=== PATIENT | female | born 1985 | race Caucasian/White ===

== ENCOUNTER 2020-12-15 10:24 | Emergency (ER) | payer OTHER, SELFPAY ==
[2020-12-15 10:56] VITALS: BP 119/72; PULSE 66; RESP 16; TEMP 36.8; O2SAT 99; BMI 36.5
--- NOTE | 2020-12-15 11:31 | ECG_ITS ---
Test Reason : ABDOMINAL PAIN Blood Pressure : / mmHG Vent. Rate : 061 BPM Atrial Rate : 061 BPM P-R Int : 204 ms QRS Dur : 090 ms QT Int : 408 ms P-R-T Axes : 045 036 006 degrees QTc Int : 410 ms Normal sinus rhythm Normal ECG When compared with ECG of 08-MAR-2012 22:17, Vent. rate has decreased BY 50 BPM Referred By: Emily Sadler Electronically Signed By:JOAQUIM FATIMA
--- NOTE | 2020-12-15 12:04 | ED.ABDPAIN ---
HPI - Abdominal Pain General Chief Complaint: Abdominal Pain Stated Complaint: epigastric pain Time Seen by Provider: 12/15/20 11:30 Source: patient Mode of arrival: ambulatory Limitations: no limitations History of Present Illness HPI narrative: Patient comes to the emergency room complaining of epigastric burning sensation. Patient states that she has had this issue in the past, patient states that she has not noticed any pattern, not sure if food makes it worse. Patient is being treated for gastritis with omeprazole. Yesterday she had 4 omeprazole without relief, states usually they do help. Patient denies right upper quadrant pain. No vomiting or diarrhea. No fever chills. Related Data Previous Rx's Medication Instructions Recorded sucralfate 1 gram tablet (Carafate) 1 g PO BID #14 tab 12/15/20 Allergies Allergy/AdvReac Type Severity Reaction Status Date / Time morphine [Morphine] Allergy Unknown RASH, Unverified 01/02/20 15:21 Chest pain,rash, itchy sumatriptan [Imitrex] Allergy Unknown Migraines Verified 03/29/17 00:00 get worse zolmitriptan [From ZOMIG] AdvReac Unknown HEADACHES Unverified 01/02/20 15:21 From Imitrex AdvReac Unknown DIZZINES Uncoded 01/02/20 15:21 Review of Systems Review of Systems Constitutional : No Weight loss, No Fever, No Chills, No Night Sweats, No Fatigue, No Malaise ENT/Mouth : No Hearing loss, No Ear Pain, No Nasal Congestion, No Sinus Pain, No Hoarseness, No sore throat, No Rhinorrhea, No Swallowing Difficulty Eyes: No Eye Pain, No Swelling, No Redness, No Foreign Body, No Discharge, No Vision Changes Cardiovascular : No Chest Pain, No SOB, No Dyspnea on Exertion, No Orthopnea, No Edema, No Palpitations Respiratory : No Cough, No Sputum, No Wheezing, No Smoke Exposure, No Dyspnea Gastrointestinal : No Nausea, No Vomiting, No Diarrhea, No Constipation, complaining of epigastric burning sensation Genitourinary : no irregular bleeding, No Dysuria, No Urinary Frequency, No Hematuria, No Urinary Incontinence, No Urgency, No Flank Pain, No Urinary Flow Changes, No Hesitancy Musculoskeletal : No joint pain, No Myalgias, No Joint Swelling Skin : No Skin Lesions, No rash Neuro : No Weakness, No Numbness, No Paresthesias, No Loss of Consciousness, No Dizziness, No Headache Psych : No Anxiety/Panic, No Depression, No SI/HI/AH/VH, No Social Issues, Heme/Lymph: No Bruising, No Bleeding,No Lymphadenopathy Endocrine : No Polyuria, No Polydipsia, No Temperature Intolerance Physical Exam Vital Signs: Vital Signs: Last Vital Signs Temp 98.2 F 12/15/20 10:56 Pulse 66 12/15/20 10:56 Resp 16 12/15/20 10:56 BP 119/72 12/15/20 10:56 Pulse Ox 99 12/15/20 10:56 Body Mass Index 36.5 Const: Other: Appearance: Alert. Oriented X3. No acute distress. Well-appearing Eyes: Pupils equal, round and reactive to light. ENT: Pharynx normal. Neck: Normal inspection. Neck supple. No lymph nodes noted. No crepitus CVS: Normal heart rate and rhythm. Pulses normal. Normal S1 and S2 Respiratory: No respiratory distress. Breath sounds normal. No Wheezing. No rales Abdomen: Soft and nontender. No rigidity. No distention. Skin: Skin warm and dry. Normal skin color. Normal skin turgor. Extremities: No lower extremity edema. No lower extremity edema. No Lacerations. No Rash Neuro: Oriented X 3. No motor deficit. No sensory deficit. Moving all extermities. No slurred speech. Course Course Course Narrative: Patient states that she feels much better now, patient received 1 dose of GI cocktail. I discussed with the patient that she likely has gastritis versus peptic ulcer disease MDM - Abdominal Pain Lab Data Result diagrams: 12/15/20 12:09 12/15/20 12:09 Labs: Lab Results 12/15/20 12/15/20 12/15/20 Range/Units 12:09 12:09 12:09 WBC 8.9 (4.8-10.8) X10*3/uL RBC 4.64 (4.20-5.50) X10*6/uL Hgb 12.7 (12.0-16.0) g/dl Hct 39.5 (37-47) % MCV 85.1 (80-98) fL MCH 27.4 (27.0-33.0) pg MCHC 32.2 (31.0-35.0) g/dl RDW 14.6 (11.0-16.0) % Plt Count 323 (160-400) X10*3/uL MPV 9.7 (9.4-12.3) fL Immature Gran % (Auto) 0.2 (0.0-0.4) % Neut % (Auto) 61.7 (45-73) % Lymph % (Auto) 30.5 (20-40) % [place] % (Auto) 6.0 (2-11) % Eos % (Auto) 1.0 (0-4) % Baso % (Auto) 0.6 (0-2) % Lymph # (Auto) 2.7 (1.2-4.9) X10*3/uL [place] # (Auto) 0.5 (0.1-1.2) X10*3/uL Eos # (Auto) 0.1 (0.0-0.4) X10*3/uL Baso # (Auto) 0.1 (0.0-0.2) X10*3/uL Abs Immat Gran (auto) 0.02 (0.00-0.03) X10*3/uL Absolute Neuts (auto) 5.5 (2.0-8.3) X10*3/uL Absolute Nucleated RBC 0.000 (0.0-0.012) X10*3/uL Nucleated RBC % (auto) 0.0 (0.0-0.2) /100WBC Sodium 138 (135-145) mmol/L Potassium 4.1 (3.3-5.1) mmol/L Chloride 107 (96-108) mmol/L Carbon Dioxide 24 (22-29) mmol/L Anion Gap 11 L (12-20) BUN 12 (9-16) mg/dL Creatinine 0.69 (0.5-1.4) mg/dL Estim Creat Clear Calc 122.4 Estimated GFR > 60 Random Glucose 89 (60-115) mg/dL Calcium 9.1 (8.4-10.2) mg/dL Total Bilirubin 0.5 (0.0-1.0) mg/dL Direct Bilirubin < 0.2 (0.0-0.5) mg/dL AST 14 (5-31) U/L ALT 12 (0-31) U/L Alkaline Phosphatase 114 (39-117) U/L Total Protein 7.2 (6.5-8.0) g/dL Albumin 4.0 (3.5-5.0) g/dL Lipase 15 (8-78) U/L Urine Color YELLOW Urine Appearance CLEAR Urine pH 6.5 (5.0-8.0) Ur Specific [place] <= 1.005 (1.005-1.025) Urine Protein NEG (NEG-TRACE) MG/DL Urine Glucose (UA) NEG (NEG) MG/DL Urine Ketones NEG (NEG) MG/DL Urine Blood NEG (NEG) Urine Nitrite NEG (NEG) Ur Leukocyte Esterase NEG (NEG) Urine Test (NEGATIVE) 12/15/20 Range/Units 12:09 WBC (4.8-10.8) X10*3/uL RBC (4.20-5.50) X10*6/uL Hgb (12.0-16.0) g/dl Hct (37-47) % MCV (80-98) fL MCH (27.0-33.0) pg MCHC (31.0-35.0) g/dl RDW (11.0-16.0) % Plt Count (160-400) X10*3/uL MPV (9.4-12.3) fL Immature Gran % (Auto) (0.0-0.4) % Neut % (Auto) (45-73) % Lymph % (Auto) (20-40) % [place] % (Auto) (2-11) % Eos % (Auto) (0-4) % Baso % (Auto) (0-2) % Lymph # (Auto) (1.2-4.9) X10*3/uL [place] # (Auto) (0.1-1.2) X10*3/uL Eos # (Auto) (0.0-0.4) X10*3/uL Baso # (Auto) (0.0-0.2) X10*3/uL Abs Immat Gran (auto) (0.00-0.03) X10*3/uL Absolute Neuts (auto) (2.0-8.3) X10*3/uL Absolute Nucleated RBC (0.0-0.012) X10*3/uL Nucleated RBC % (auto) (0.0-0.2) /100WBC Sodium (135-145) mmol/L Potassium (3.3-5.1) mmol/L Chloride (96-108) mmol/L Carbon Dioxide (22-29) mmol/L Anion Gap (12-20) BUN (9-16) mg/dL Creatinine (0.5-1.4) mg/dL Estim Creat Clear Calc Estimated GFR Random Glucose (60-115) mg/dL Calcium (8.4-10.2) mg/dL Total Bilirubin (0.0-1.0) mg/dL Direct Bilirubin (0.0-0.5) mg/dL AST (5-31) U/L ALT (0-31) U/L Alkaline Phosphatase (39-117) U/L Total Protein (6.5-8.0) g/dL Albumin (3.5-5.0) g/dL Lipase (8-78) U/L Urine Color Urine Appearance Urine pH (5.0-8.0) Ur Specific [place] (1.005-1.025) Urine Protein (NEG-TRACE) MG/DL Urine Glucose (UA) (NEG) MG/DL Urine Ketones (NEG) MG/DL Urine Blood (NEG) Urine Nitrite (NEG) Ur Leukocyte Esterase (NEG) Urine Test NEGATIVE (NEGATIVE) Discharge Plan Discharge Clinical Impression: Gastritis Patient Disposition: Home, Self-Care Instructions: Gastritis (ED), Diet for Stomach Ulcers and Gastritis (ED) Additional Instructions: Please follow-up with your primary care physician tomorrow. If you have any worsening or new symptoms, please return to the emergency room or call 911 Prescriptions: New sucralfate [Carafate] 1 gram tablet 1 g PO BID Qty: 14 RF: 0 PMFSH Past Medical History Medical History Acid reflux IBS (irritable bowel syndrome) Migraine Restless legs Social History Social History Advance Directives: No Advance Directives Information Provided: No
[2020-12-15 12:17] LABS: MANUAL DIFF FLAG NO
[2020-12-15] MEDS: Magnesium Hydrox/Alum Hydrox 30 ML ORAL.SUSP PO (12:18)
[2020-12-15] MEDS: Lidocaine HCl Viscous 2 % 15 ML SOLUTION MUCOUS MEM (12:18)
[2020-12-15 12:20] LABS: Basophils Absolute Auto 0.1 X10*3/uL (0.0-0.2); Basophils Percent Auto 0.6 % (0-2); Eosinophils Absolute Auto 0.1 X10*3/uL (0.0-0.4); Glucose Urine UA NEG (NEG); Hematocrit 39.5 % (37-47); Hemoglobin 12.7 g/dl (12.0-16.0); Imm Gran Abs Auto 0.02 X10*3/uL (0.00-0.03); Imm Gran Pct Auto 0.2 % (0.0-0.4); Leukocyte Esterase Urine NEG (NEG); Lymphocytes Absolute Auto 2.7 X10*3/uL (1.2-4.9); Lymphocytes Percent Auto 30.5 % (20-40); Mean Corpuscular HGB Conc 32.2 g/dl (31.0-35.0); Mean Corpuscular Hemoglobin 27.4 pg (27.0-33.0); Mean Corpuscular Volume 85.1 fL (80-98); Mean Platelet Volume 9.7 fL (9.4-12.3); Monocytes Absolute Auto 0.5 X10*3/uL (0.1-1.2); Neutrophils Absolute Auto 5.5 X10*3/uL (2.0-8.3); Neutrophils Percent Auto 61.7 % (45-73); Nitrite Urine NEG (NEG); PH 6.5 (5.0-8.0); Platelet Count 323 X10*3/uL (160-400); Red Blood Count 4.64 X10*6/uL (4.20-5.50); Red Cell Distribution Width 14.6 % (11.0-16.0); Specific Gravity - Urine <= 1.005 (1.005-1.025); Urine Blood NEG (NEG); Urine Ketones NEG (NEG); Urine Protein NEG (NEG-TRACE); White Blood Count 8.9 X10*3/uL (4.8-10.8)
[2020-12-15 12:21] LABS: Appearance Urine CLEAR; Color Urine YELLOW
[2020-12-15 12:23] LABS: UPreg QC Valid YES; Urine Pregnancy NEGATIVE (NEGATIVE)
[2020-12-15 12:38] LABS: Alanine Aminotransferase 12 U/L (0-31); Alkaline Phosphatase 114 U/L (39-117); Anion Gap 11 (12-20); Aspartate Amino Transferase 14 U/L (5-31); Bilirubin Direct < 0.2 mg/dL (0.0-0.5); Bilirubin Total 0.5 mg/dL (0.0-1.0); Blood Urea Nitrogen 12 mg/dL (9-16); Calcium 9.1 mg/dL (8.4-10.2); Carbon Dioxide 24 mmol/L (22-29); Chloride 107 mmol/L (96-108); Creatinine Clr Calc Pharmacy 122.4; Estimated Glomerular Filt Rate > 60; Glucose Random 89 mg/dL (60-115); Lipase 15 U/L (8-78); Potassium 4.1 mmol/L (3.3-5.1); Sodium 138 mmol/L (135-145); Total Protein 7.2 g/dL (6.5-8.0)
== END 2020-12-15 13:32 | disposition home or self-care (01) ==
PROVIDERS: Emergency Provider Emergency Medicine
DX: K29.70 Gastritis, unspecified, without bleeding (principal); R10.13 Epigastric pain
CPT/HCPCS: 36415; 80048; 80076; 81003; 81025; 83690; 85025; 93005; 99283

== ENCOUNTER 2021-04-15 17:15 | Emergency (ER) | payer OTHER, SELFPAY ==
--- NOTE | ~2021-04-15 | US_ITS ---
EXAMINATION: US ABDOMEN LIMITED CLINICAL INFORMATION: RUQ and epigastric pain. COMPARISON: None TECHNIQUE: Real-time imaging of the right upper quadrant abdominal viscera. FINDINGS: PANCREAS: Pancreatic tail is obscured by bowel gas. Pancreatic body and head are normal appearance. No ductal dilatation. LIVER: Only partially assessed on these images. Imaged portion is unremarkable. GALLBLADDER: Numerous dependent between 4 and 7 mm in diameter. The gallbladder is physiologically distended. Normal gallbladder wall thickness. No pericholecystic fluid. Patient is tender in the region of the gallbladder. COMMON BILE DUCT: Normal in caliber measuring 0.35 cm in diameter. RIGHT KIDNEY: Normal. No hydronephrosis. No renal calculi or focal parenchymal lesions. The kidney measures 10.7 cm in maximum dimension. FREE FLUID: None. US/US abdomen limited IMPRESSION: Cholelithiasis without convincing sonographic findings of acute cholecystitis. Normal right kidney.
[2021-04-15 17:34] VITALS: BP 112/73; BP 158/98; PULSE 71; PULSE 80; RESP 18; TEMP 36.8; O2SAT 99; BMI 35.6
--- NOTE | 2021-04-15 17:41 | ED_ITS ---
HPI - Abdominal Pain General Chief Complaint: Abdominal Pain Stated Complaint: LOW ABD PAIN RADIATING TO BACK Time Seen by Provider: 04/15/21 17:41 Source: patient Mode of arrival: ambulatory Limitations: no limitations History of Present Illness HPI narrative: 36 yo female with a history of GERD, H. Pylori, gastritis who recently had an EGD done on Monday at [facility] presents to the ER with acute onset of severe upper abdominal pain that started 5 hours ago. She reports pain started shortly after she ate tacos. She said there bland with only cheese and sour cream, no cells or spicy media. The pain is burning and intense; starts in her epigastric area and radiates and her her right upper quadrant and to her r ight back. She has vomited 3 times, coffee-ground in appearance. She has not gotten official call about the results of her EGD with a took biopsies but she states there is some results in her chart on line. She denies any history of EtOH use or drug use. She denies chance of . She denies any shortness of breath or chest pain. No fevers. MD elicited complaint: abdominal pain Pertinent past history: gastritis Onset (ago): hour(s) (5) Pain Consistency: constant Location: epigastric Severity: severe Quality: burning Radiation: RUQ and R flank Exacerbating factors: nothing Relieving factors: nothing Context: recent surgery/procedure and history of similar episodes Associated symptoms: nausea and vomiting Related Data Date of Last Menstrual Period: 03/08/21 Patient : No Previous Rx's Medication Instructions Recorded sucralfate 1 gram tablet (Carafate) 1 g PO BID #14 tab 12/15/20 amoxicillin 500 mg tablet 1,000 mg PO Q12H 14 Days #56 tab 04/15/21 clarithromycin 500 mg tablet 500 mg PO BID 14 Days #28 tab 04/15/21 ondansetron 4 mg disintegrating 4 mg PO Q6H PRN #10 tab 04/15/21 tablet pantoprazole 20 mg tablet,delayed 20 mg PO BID 14 Days #28 tab 04/15/21 release (Protonix) Allergies Allergy/AdvReac Type Severity Reaction Status Date / Time morphine [Morphine] Allergy Unknown RASH, Verified 04/15/21 17:34 Chest pain,rash, itchy sumatriptan [Imitrex] Allergy Unknown Migraines Verified 04/15/21 17:34 get worse zolmitriptan [From ZOMIG] AdvReac Unknown HEADACHES Verified 04/15/21 17:34 From Imitrex AdvReac Unknown DIZZINES Uncoded 01/02/20 15:21 Review of Systems Review of Systems Constitutional: No Fever, No Chills ENT/Mouth: No sore throat, No Rhinorrhea, No Swallowing Difficulty Cardiovascular: No Chest Pain, No SOB, No Orthopnea, No Edema Respiratory: No Cough, No Sputum, No Wheezing, No dyspnea Gastrointestinal: + Nausea, + Vomiting, No Diarrhea, + abdominal Pain, No Hematochezia, No Melena Genitourinary: No Dysuria, No Urinary Frequency, No Hematuria Musculoskeletal: No joint pain, No Myalgias Skin: No Skin Lesions, No rash Neuro: No Weakness, No Numbness, No Dizziness, No Headache Psych: + Anxiety/Panic, No Depression Heme/Lymph: No Bruising, No Lymphadenopathy Endocrine: No Polyuria, No Polydipsia Physical Exam Vital Signs: Vital Signs: Last Vital Signs Temp 98.2 F 04/15/21 20:18 Pulse 58 04/15/21 20:18 Resp 18 04/15/21 20:18 BP 126/76 04/15/21 20:18 Pulse Ox 98 04/15/21 20:18 BMI result Body Mass Index 35.6 Appearance: Alert. Oriented X3. Appears uncomfortable, writhing on the stretcher. Eyes: Pupils equal, round and reactive to light. ENT: Pharynx normal. Neck: Normal inspection. Neck supple. CVS: Normal heart rate and rhythm. Pulses normal. Respiratory: No respiratory distress. Breath sounds normal. Abdomen: Soft, +epigastric and RUQ tenderness with some guarding. No rebound tenderness. Normal BS X4 Skin: Skin warm and dry. Normal skin color. Normal skin turgor. No rashes. Extremities: No lower extremity edema. Neuro: Oriented X 3. Moves all extremities, follows commands, nonfocal, grossly normal Course Course Course Narrative: 36-year-old female with a history of gastritis, GERD, H pylori in the past who presents to the ER with severe epigastric burning abdominal pain that radiates to right upper quadrant. Patient brought up her my chart results which were reviewed. Biopsy showing chronic gastritis that is active as well as identifiable H pylori. She was not called with results are started on antibiotics or PPI. Will give her a GI cocktail plan to discharge her on triple therapy for H pylori. Will check lab workup to rule out biliary cause of pain. Reevaluation(s) Reevaluation #1: LFTs are normal. Right upper quadrant ultrasound is showing some gallstones but evidence of acute pancreatitis. Her WBC count is 19,000 which is most likely due to vomiting and reactive in nature. Her lactic acid was normal. Her pain and vomiting is most likely due to ulcers related to H pylori. Will start triple therapy. Her right upper quadrant pain could be due to gallstones and biliary colic however it may be referred pain from her H pylori and gastritis. Will fully treat the H pylori never follow-up with her GI doctor. Will also refer to surgeon for evaluation of gallstones and possible elective cholecystectomy if symptoms persist. Patient agreeable with plan. Stable for DC home. MDM - Abdominal Pain Lab Data Result diagrams: 04/15/21 19:00 04/15/21 19:25 Labs: Lab Results 04/15/21 04/15/21 04/15/21 Range/Units 19:00 19:00 19:00 WBC 19.0 H (4.8-10.8) X10*3/uL RBC 4.75 (4.20-5.50) X10*6/uL Hgb 13.2 (12.0-16.0) g/dl Hct 40.7 (37.0-47.0) % MCV 85.7 (80.0-98.0) fL MCH 27.8 (27.0-33.0) pg MCHC 32.4 (31.0-35.0) g/dl RDW 14.9 (11.0-16.0) % Plt Count 356 (160-400) X10*3/uL MPV 10.2 (9.4-12.3) fL Immature Gran % (Auto) 0.5 H (0.0-0.4) % Neut % (Auto) 81.0 H (45-73) % Lymph % (Auto) 12.8 L (20-40) % [place] % (Auto) 4.9 (2-11) % Eos % (Auto) 0.3 (0-4) % Baso % (Auto) 0.5 (0-2) % Lymph # (Auto) 2.4 (1.2-4.9) X10*3/uL [place] # (Auto) 0.9 (0.1-1.2) X10*3/uL Eos # (Auto) 0.1 (0.0-0.4) X10*3/uL Baso # (Auto) 0.1 (0.0-0.2) X10*3/uL Abs Immat Gran (auto) 0.09 H (0.00-0.03) X10*3/uL Absolute Neuts (auto) 15.4 H (2.0-8.3) x10*3/uL Absolute Nucleated RBC 0.000 (0.0-0.012) X10*3/uL Nucleated RBC % (auto) 0.0 (0.0-0.2) /100WBC Sodium (135-145) mmol/L Potassium (3.3-5.1) mmol/L Chloride (96-108) mmol/L Carbon Dioxide (22-29) mmol/L Anion Gap (12-20) BUN (9-16) mg/dL Creatinine (0.5-1.4) mg/dL Estim Creat Clear Calc Estimated GFR Random Glucose (60-115) mg/dL Lactic Acid 1.3 (0.5-2.0) mmol/L Calcium (8.4-10.2) mg/dL Magnesium (1.6-2.6) mg/dL Total Bilirubin (0.0-1.0) mg/dL Direct Bilirubin (0.0-0.5) mg/dL AST (5-31) U/L ALT (0-31) U/L Alkaline Phosphatase (39-117) U/L Total Protein (6.5-8.0) g/dL Albumin (3.5-5.0) g/dL Lipase (8-78) U/L Urine Color Urine Appearance Urine pH (5.0-8.0) Ur Specific [place] (1.005-1.025) Urine Protein (NEG-TRACE) MG/DL Urine Glucose (UA) (NEG) MG/DL Urine Ketones (NEG) MG/DL Urine Blood (NEG) Urine Nitrite (NEG) Ur Leukocyte Esterase (NEG) Urine RBC (0) /HPF Urine WBC (0-4) /HPF Ur Squamous Epith Cells /LPF Urine Bacteria /LPF Urine Test (NEGATIVE) COVID-19 (VILMA) Negative (Negative) COVID-19 Clin Com See Note 04/15/21 04/15/21 04/15/21 Range/Units 19:00 19:00 19:25 WBC (4.8-10.8) X10*3/uL RBC (4.20-5.50) X10*6/uL Hgb (12.0-16.0) g/dl Hct (37.0-47.0) % MCV (80.0-98.0) fL MCH (27.0-33.0) pg MCHC (31.0-35.0) g/dl RDW (11.0-16.0) % Plt Count (160-400) X10*3/uL MPV (9.4-12.3) fL Immature Gran % (Auto) (0.0-0.4) % Neut % (Auto) (45-73) % Lymph % (Auto) (20-40) % [place] % (Auto) (2-11) % Eos % (Auto) (0-4) % Baso % (Auto) (0-2) % Lymph # (Auto) (1.2-4.9) X10*3/uL [place] # (Auto) (0.1-1.2) X10*3/uL Eos # (Auto) (0.0-0.4) X10*3/uL Baso # (Auto) (0.0-0.2) X10*3/uL Abs Immat Gran (auto) (0.00-0.03) X10*3/uL Absolute Neuts (auto) (2.0-8.3) x10*3/uL Absolute Nucleated RBC (0.0-0.012) X10*3/uL Nucleated RBC % (auto) (0.0-0.2) /100WBC Sodium 137 (135-145) mmol/L Potassium 3.8 (3.3-5.1) mmol/L Chloride 106 (96-108) mmol/L Carbon Dioxide 25 (22-29) mmol/L Anion Gap 10 L (12-20) BUN 14 (9-16) mg/dL Creatinine 0.82 (0.5-1.4) mg/dL Estim Creat Clear Calc 100.6 Estimated GFR > 60 Random Glucose 115 (60-115) mg/dL Lactic Acid (0.5-2.0) mmol/L Calcium 8.9 (8.4-10.2) mg/dL Magnesium 1.8 (1.6-2.6) mg/dL Total Bilirubin 0.2 (0.0-1.0) mg/dL Direct Bilirubin < 0.2 (0.0-0.5) mg/dL AST 15 (5-31) U/L ALT 19 (0-31) U/L Alkaline Phosphatase 100 (39-117) U/L Total Protein 7.3 (6.5-8.0) g/dL Albumin 4.0 (3.5-5.0) g/dL Lipase 9 (8-78) U/L Urine Color YELLOW Urine Appearance CLEAR Urine pH 6.0 (5.0-8.0) Ur Specific [place] 1.025 (1.005-1.025) Urine Protein NEG (NEG-TRACE) MG/DL Urine Glucose (UA) NEG (NEG) MG/DL Urine Ketones 5 (NEG) MG/DL Urine Blood TRACE (NEG) Urine Nitrite NEG (NEG) Ur Leukocyte Esterase NEG (NEG) Urine RBC 0-2 (0) /HPF Urine WBC 0 (0-4) /HPF Ur Squamous Epith Cells 1+ /LPF Urine Bacteria 1+ /LPF Urine Test NEGATIVE (NEGATIVE) COVID-19 ([facility]MA) (Negative) COVID-19 Clin Com 04/15/21 Range/Units 19:25 WBC (4.8-10.8) X10*3/uL RBC (4.20-5.50) X10*6/uL Hgb (12.0-16.0) g/dl Hct (37.0-47.0) % MCV (80.0-98.0) fL MCH (27.0-33.0) pg MCHC (31.0-35.0) g/dl RDW (11.0-16.0) % Plt Count (160-400) X10*3/uL MPV (9.4-12.3) fL Immature Gran % (Auto) (0.0-0.4) % Neut % (Auto) (45-73) % Lymph % (Auto) (20-40) % [place] % (Auto) (2-11) % Eos % (Auto) (0-4) % Baso % (Auto) (0-2) % Lymph # (Auto) (1.2-4.9) X10*3/uL [place] # (Auto) (0.1-1.2) X10*3/uL Eos # (Auto) (0.0-0.4) X10*3/uL Baso # (Auto) (0.0-0.2) X10*3/uL Abs Immat Gran (auto) (0.00-0.03) X10*3/uL Absolute Neuts (auto) (2.0-8.3) x10*3/uL Absolute Nucleated RBC (0.0-0.012) X10*3/uL Nucleated RBC % (auto) (0.0-0.2) /100WBC Sodium (135-145) mmol/L Potassium (3.3-5.1) mmol/L Chloride (96-108) mmol/L Carbon Dioxide (22-29) mmol/L Anion Gap (12-20) BUN (9-16) mg/dL Creatinine (0.5-1.4) mg/dL Estim Creat Clear Calc Estimated GFR Random Glucose (60-115) mg/dL Lactic Acid 1.2 (0.5-2.0) mmol/L Calcium (8.4-10.2) mg/dL Magnesium (1.6-2.6) mg/dL Total Bilirubin (0.0-1.0) mg/dL Direct Bilirubin (0.0-0.5) mg/dL AST (5-31) U/L ALT (0-31) U/L Alkaline Phosphatase (39-117) U/L Total Protein (6.5-8.0) g/dL Albumin (3.5-5.0) g/dL Lipase (8-78) U/L Urine Color Urine Appearance Urine pH (5.0-8.0) Ur Specific [place] (1.005-1.025) Urine Protein (NEG-TRACE) MG/DL Urine Glucose (UA) (NEG) MG/DL Urine Ketones (NEG) MG/DL Urine Blood (NEG) Urine Nitrite (NEG) Ur Leukocyte Esterase (NEG) Urine RBC (0) /HPF Urine WBC (0-4) /HPF Ur Squamous Epith Cells /LPF Urine Bacteria /LPF Urine Test (NEGATIVE) COVID-19 ([facility]) (Negative) COVID-19 Clin Com Critical Care Time Critical Care Time Critical Care Time: No Discharge Plan Discharge Clinical Impression: H. pylori infection, Gallstones Patient Disposition: Home, Self-Care Instructions: Helicobacter Pylori (ED), Gallstones (ED) Additional Instructions: Take all the prescribed medications as directed. Complete the entire 2 week course of the antibiotic and antacid medication prescribed. Your pain is most likely due to your H pylori infection that was found on your EGD the other day at [facility]. Pain will slowly improve as your infection is treated. Avoid any food high in acid, any spicy food or fatty food. Stick to a very bland diet. Your ultrasound also showed some gallstones but no evidence of gallbladder infection. Your liver enzymes and tests were all normal. If you continue to have pain in the right upper quadrant recommend evaluation by surgeon for possible gallbladder removal. Follow-up with her primary care doctor this week. Follow-up with your GI doctor as well. If you develop new or worsening symptoms call 911 or come back to the ER for further evaluation. Prescriptions: New amoxicillin 500 mg tablet 1,000 mg PO Q12H 14 Days Qty: 56 RF: 0 clarithromycin 500 mg tablet 500 mg PO BID 14 Days Qty: 28 RF: 0 pantoprazole [Protonix] 20 mg tablet,delayed release (DR/EC) 20 mg PO BID 14 Days Qty: 28 RF: 0 ondansetron 4 mg tablet,disintegrating 4 mg PO Q6H PRN (Reason: nausea and vomiting) Qty: 10 RF: 0 No Action sucralfate [Carafate] 1 gram tablet 1 g PO BID Qty: 14 RF: 0 Referrals: Matthew Sampson MD [Physician] - 1 week (right upper quadrant pain with gallstones.) Stand Alone Forms: Work/School Release [facility] Past Medical History Medical History (Updated 04/15/21 @ 20:53 by JENNIFER Ramos) Acid reflux IBS (irritable bowel syndrome) Migraine Restless legs Surgical History (Updated 04/15/21 @ 17:36 by Diane Guzman) Tubal ligation status Date of Last Menstrual Period: 03/08/21 Social History Social History Advance Directives: No Advance Directives Information Provided: No Patient : No
[2021-04-15] MEDS: Lidocaine HCl Viscous 2 % 15 ML SOLUTION MUCOUS MEM (18:42)
[2021-04-15] MEDS: PHENobarb/Hyoscy/Atropine/Scop 10 ML ELIXIR PO (18:42)
[2021-04-15] MEDS: Omeprazole 40 MG CAPSULE.DR PO (18:43)
[2021-04-15] MEDS: Amoxicillin 500 MG CAPSULE 1000 MG PO (18:43)
[2021-04-15] MEDS: 0.9 % Sodium Chloride 1,000 ML 999 ML IVCONT (18:43)
[2021-04-15] MEDS: Magnesium Hydrox/Alum Hydrox 30 ML ORAL.SUSP PO (18:43)
[2021-04-15] MEDS: ondansetron HCL 4 MG/2 ML VIAL IVPUSH (18:44)
[2021-04-15 19:07] LABS: Basophils Absolute Auto 0.1 X10*3/uL (0.0-0.2); Basophils Percent Auto 0.5 % (0-2); Eosinophils Absolute Auto 0.1 X10*3/uL (0.0-0.4); Eosinophils Percent Auto 0.3 % (0-4); Hematocrit 40.7 % (37.0-47.0); Hemoglobin 13.2 g/dl (12.0-16.0); Imm Gran Abs Auto 0.09 X10*3/uL (0.00-0.03); Imm Gran Pct Auto 0.5 % (0.0-0.4); Lymphocytes Absolute Auto 2.4 X10*3/uL (1.2-4.9); Lymphocytes Percent Auto 12.8 % (20-40); MANUAL DIFF FLAG NO; Mean Corpuscular HGB Conc 32.4 g/dl (31.0-35.0); Mean Corpuscular Hemoglobin 27.8 pg (27.0-33.0); Mean Corpuscular Volume 85.7 fL (80.0-98.0); Mean Platelet Volume 10.2 fL (9.4-12.3); Monocytes Absolute Auto 0.9 X10*3/uL (0.1-1.2); Monocytes Percent Auto 4.9 % (2-11); Neutrophils Absolute Auto 15.4 x10*3/uL (2.0-8.3); Platelet Count 356 X10*3/uL (160-400); Red Blood Count 4.75 X10*6/uL (4.20-5.50); Red Cell Distribution Width 14.9 % (11.0-16.0)
[2021-04-15 19:08] LABS: Appearance Urine CLEAR; Color Urine YELLOW; Glucose Urine UA NEG (NEG); Leukocyte Esterase Urine NEG (NEG); Nitrite Urine NEG (NEG); Specific Gravity - Urine 1.025 (1.005-1.025); UACC Culture Trigger NO; Urine Blood TRACE (NEG); Urine Ketones 5 MG/DL (NEG); Urine Protein NEG (NEG-TRACE)
[2021-04-15 19:10] LABS: UPreg QC Valid YES; Urine Pregnancy NEGATIVE (NEGATIVE)
[2021-04-15 19:16] LABS: Bacteria Urine 1+ /LPF; RBC Urine 0-2 /HPF (0); Squamous Epithelial Cell Urine 1+ /LPF; WBC Urine 0 /HPF (0-4)
[2021-04-15 19:22] LABS: Lactic Acid 1.3 mmol/L (0.5-2.0)
[2021-04-15 19:23] LABS: COVID-19 Test Negative (Negative); IDNOW Serial# 9DD0AD1C
[2021-04-15 19:40] LABS: Lactic Acid 1.2 mmol/L (0.5-2.0)
[2021-04-15 19:46] LABS: Alanine Aminotransferase 19 U/L (0-31); Alkaline Phosphatase 100 U/L (39-117); Anion Gap 10 (12-20); Aspartate Amino Transferase 15 U/L (5-31); Bilirubin Direct < 0.2 mg/dL (0.0-0.5); Bilirubin Total 0.2 mg/dL (0.0-1.0); Blood Urea Nitrogen 14 mg/dL (9-16); Calcium 8.9 mg/dL (8.4-10.2); Carbon Dioxide 25 mmol/L (22-29); Chloride 106 mmol/L (96-108); Creatinine Clr Calc Pharmacy 100.6; Estimated Glomerular Filt Rate > 60; Glucose Random 115 mg/dL (60-115); Lipase 9 U/L (8-78); Magnesium 1.8 mg/dL (1.6-2.6); Potassium 3.8 mmol/L (3.3-5.1); Sodium 137 mmol/L (135-145); Total Protein 7.3 g/dL (6.5-8.0)
[2021-04-15 19:58] VITALS: RESP 20
[2021-04-15] MEDS: HYDROmorphone HCl 0.5 MG/0.5 ML SYRINGE IVPUSH (19:58)
[2021-04-15 20:18] VITALS: BP 126/76; PULSE 58; RESP 18; TEMP 36.8; O2SAT 98
== END 2021-04-15 21:22 | disposition home or self-care (01) ==
PROVIDERS: Physician Assistant; Emergency Provider Emergency Medicine Emergency Medical Services
DX: K80.80 Other cholelithiasis without obstruction (principal); B96.81 Helicobacter pylori [H. pylori] as the cause of diseases classified elsewhere; R10.11 Right upper quadrant pain; Z20.822 Contact with and (suspected) exposure to COVID-19; Z79.899 Other long term (current) drug therapy
CPT/HCPCS: 36415; 76705; 80048; 80076; 81001; 81025; 83605; 83690; 83735; 85025; 87635; 96361; 96374; 96375; 99284; J1170; J2405

== ENCOUNTER → 2021-05-14 09:35 | Outpatient (BNVA) | payer OTHER, SELFPAY | PROVIDERS: Referring Provider Internal Medicine; Visit Provider Surgery | DX: K80.50 Calculus of bile duct without cholangitis or cholecystitis without obstruction (principal) | CPT/HCPCS: 99202 ==

== ENCOUNTER 2021-06-09 06:02 | Day surgery (SDC) | payer OTHER, SELFPAY ==
[2021-06-01 09:51] VITALS: BMI 36.3
--- NOTE | 2021-06-08 08:50 | P.CONAN_ITS ---
Documented by User: Sally Rivera NP 06/08/21 08:57 HPI - Anesthesia Eval Consult details Narrative: 36yo F for Cholecystectomy Laparoscopic PMFSH Active Problems Active Problems: All Active Problems (Updated 06/01/21 @ 09:37 by Tamika Delgadillo RN) Biliary colic (Acute) Past Medical History Medical History (Updated 06/01/21 @ 09:37 by Tamika Delgadillo RN) Acid reflux History of anemia IBS (irritable bowel syndrome) Migraine Restless legs Family History Family History Paternal Aunt Breast cancer Paternal Grandfather Colon cancer Paternal Uncle Cancer of unknown origin Maternal Grandmother Kidney carcinoma Surgical History Surgical History (Updated 06/01/21 @ 09:37 by Tamika Delgadillo RN) History of bilateral tubal ligation History of heart surgery Social History Social History Are you a primary day care center director to a significant other at home: No Do you presently have visiting nurse or other home services: No Alcohol intake: never Patient Tobacco Use Status: Never used Tobacco Use of substances other than those prescribed or required for medical reasons: No Have you been hit, kicked, punched, or otherwise hurt by someone within the past year? If so, by whom?: No Are you DNR?: No Advance Directives: No Advance Directives Information Provided: Yes Advance Directives on File: No Recently lost weight without trying: No Eating poorly because of decreased appetite: No Nutrition Risks: No Nutritional Risk Patient : No FDLMP: 05/28/21 : No Meds Allergies Allergy/AdvReac Type Severity Reaction Status Date / Time morphine [Morphine] Allergy Unknown RASH, Verified 06/01/21 09:37 Chest pain,rash, itchy sumatriptan [Imitrex] Allergy Unknown Migraines Verified 06/01/21 09:37 get worse zolmitriptan [From ZOMIG] AdvReac Unknown HEADACHES Verified 06/01/21 09:37 Home Medications Medication Instructions Recorded Confirmed Last Taken Type naratriptan 2.5 mg tablet 2.5 mg PO DAILY PRN 05/14/21 06/01/21 Unknown History promethazine 25 mg tablet 25 mg PO TID PRN 05/14/21 06/01/21 Unknown History Exam Exam Date and Time: June 08, 2021 0850 Height,Weight and Vital Signs: Height 5 ft 3 in Weight 92.986 kg Pertinent Lab Results Pertinent Lab Results: Laboratory Tests 04/15/21 04/15/21 19:00 19:25 WBC 19.0 H Hgb 13.2 Hct 40.7 Plt Count 356 Sodium 137 Potassium 3.8 Chloride 106 Carbon Dioxide 25 BUN 14 Creatinine 0.82 Narrative Narrative: EKG 11/2020 Vent. Rate : 061 BPM ? ? Atrial Rate : 061 BPM ?? P-R Int : 204 ms? QRS Dur : 090 ms ? ? QT Int : 408 ms ? ? ? P-R-T Axes : 045 036 006 degrees ?? QTc Int : 410 ms ? Normal sinus rhythm Normal ECG When compared with ECG of 08-MAR-2012 22:17, Vent. rate has decreased BY? 50 BPM Assessment and Plan Assessment Anesthesia Assessment: Chart Reviewed Documented by User: Brad Talley MD 06/09/21 07:58 PMF Past Medical History Medical History (Updated 06/01/21 @ 09:37 by Tamika Delgadillo, ANNA) Acid reflux History of anemia IBS (irritable bowel syndrome) Migraine Restless legs Patient : No Family History Family History Paternal Aunt Breast cancer Paternal Grandfather Colon cancer Paternal Uncle Cancer of unknown origin Maternal Grandmother Kidney carcinoma Family history of problems with anesthesia: No Surgical History Surgical History (Updated 06/01/21 @ 09:37 by Tamika Delgadillo, RN) History of bilateral tubal ligation History of heart surgery History of Problems with Anesthesia: No Social History Social History Are you a primary day care center director to a significant other at home: No Do you presently have visiting nurse or other home services: No Alcohol intake: never Patient Tobacco Use Status: Never used Tobacco Use of substances other than those prescribed or required for medical reasons: No Have you been hit, kicked, punched, or otherwise hurt by someone within the past year? If so, by whom?: No Are you DNR?: No Advance Directives: No Advance Directives Information Provided: Yes Advance Directives on File: No Recently lost weight without trying: No Eating poorly because of decreased appetite: No Nutrition Risks: No Nutritional Risk Patient : No FDLMP: 05/28/21 : No Meds Allergies Allergy/AdvReac Type Severity Reaction Status Date / Time morphine [Morphine] Allergy Unknown RASH, Verified 06/01/21 09:37 Chest pain,rash, itchy sumatriptan [Imitrex] Allergy Unknown Migraines Verified 06/01/21 09:37 get worse zolmitriptan [From ZOMIG] AdvReac Unknown HEADACHES Verified 06/01/21 09:37 Home Medications Medication Instructions Recorded Confirmed Last Taken Type naratriptan 2.5 mg tablet 2.5 mg PO DAILY PRN 05/14/21 06/01/21 Unknown History promethazine 25 mg tablet 25 mg PO TID PRN 05/14/21 06/01/21 Unknown History Exam Airway Mallampati Class: I TM Dist: >3cm Neck ROM: Full Loose/Missing/Broken Teeth: No Heart: ok Lungs: ok Assessment and Plan Final Anesthetic Review Family History of Problems with Anesthesia: No History of Problems with Anesthesia: No NPO: Yes ASA Class: II Final Preanesthetic Review: No Changes in Pt Med Stat, Meds/Allgs Chart Reviewed, Consent Obtained/Reviewed and Anes Risks/Benef Reviewed Patient Risk: Low Procedure Risk: Intermediate Anesthetic Plan Anesthetic Plan: GA and Agree w/ Assess. and Plan Disposition: Standard PACU
[2021-06-09] VITALS (8 sets, daily range): BP systolic 118–136; BP diastolic 80–89; PULSE 57–78; RESP 14–16; TEMP 36.2–36.8; O2SAT 97–98
[2021-06-09] MEDS: Acetaminophen 325 MG TABLET 650 MG PO (06:25)
[2021-06-09] MEDS: Lactated Ringers 1,000 ML 100 ML IVCONT (06:32)
--- NOTE | 2021-06-09 07:14 | MHC.SHP ---
Pre-Procedural Eval Section A Date of Service: 06/09/21 The patient is an INPATIENT: No Changes since office visit: Yes Patient answered all questions; No Cold of Flu in the past 2 weeks, No New Medical Problems and No Changes in Medication The History & Physical has been completed within 30 days and I have reviewed it.: Yes Section B Chief Complaint: Biliary colic Allergies: Allergies Allergy/AdvReac Type Severity Reaction Status Date / Time morphine [Morphine] Allergy Unknown RASH, Verified 06/01/21 09:37 Chest pain,rash, itchy sumatriptan [Imitrex] Allergy Unknown Migraines Verified 06/01/21 09:37 get worse zolmitriptan [From ZOMIG] AdvReac Unknown HEADACHES Verified 06/01/21 09:37 Plan Diagnosis/Plan: Unchanged I have reviewed the history and physical and performed a pertinent physical examination on my patient. No changes have occurred unless specified.
--- NOTE | 2021-06-09 08:43 | P.OP_ITS ---
Operative Note Operative Note Date of Service: 06/09/21 Narrative: Preoperative diagnosis: Biliary colic Postoperative diagnosis: Same Procedure: Laparoscopic cholecystectomy Surgeon: Sandeep Holder MD Medical Apparatus Model Maker: CAROLINA Simpson Anesthesia: General endotracheal Indications for procedure: 36-year-old female patient presenting with complaints of abdominal pain in the right upper quadrant found to have multiple gallstones within the gallbladder by ultrasound. Operative findings: Evidence of chronic cholecystitis with adhesions to the undersurface of the gallbladder. Multiple gallstones within the gallbladder. No evidence of acute cholecystitis. Specimen: gallbladder Estimated blood loss: 2 mL Complications: none Procedure details: Patient was brought to the OR and placed in a supine position. After administering general anesthesia the patient's abdomen was prepped with ChloraPrep and draped in a sterile fashion. Local anesthesia consisting of 0.5% Sensorcaine without epinephrine was infiltrated in a periumbilical region. A 5 mm incision was made above the umbilicus in a transverse fashion. The Veress needle was then inserted while elevating abdominal cavity with towel clips. After positive drop test the abdomen was insufflated to a pressure of 15 mm of mercury. The Veress needle was then removed and a 5 mm trocar inserted. The camera was inserted in the abdomen explored. A 12 mm trocar was then placed in the epigastrium and two 5 mm trocars placed in the right upper quadrant. The patient was placed in reverse Trendelenburg positioning and rotated to the left. The gallbladder was grasped with the fundus and retracted cephalad. Adhesions were taken down off the undersurface of the gallbladder using electrocautery. The infundibulum was then grasped and retracted away from the liver bed. The Dolphin dissected was then used to dissect the peritoneum off the infundibulum to reveal the junction with the cystic duct. Cystic artery was noted slightly medial and posterior to the cystic duct. After obtaining a critical view the cystic duct was doubly clipped and divided. The cystic artery was then doubly clipped and divided. The gallbladder was then dissected off the liver bed using electrocautery with an L hook. Hemostasis was assured all times using the electrocautery. When the gallbladder is completely dissected off the liver bed was placed in an Endo- Catch bag and brought out through the epigastric incision. The gallbladder was sent to pathology for further examination. The abdomen was then re-examined. The liver bed was irrigated and suctioned dry. No bleeding or bile leak could be identified. CO2 was then evacuated and all trocars removed. Fascia was closed at the epigastric incision using a [id number] 0 Polysorb suture. Skin was closed in all incisions using a subcuticular 4 0 Polysorb suture. Sterile dressings consisting of Steri-Strips, 2 x 2 gauze, and Tegaderm were then applied. The patient tolerated the procedure well. Sponge instrument and needle counts reported as correct. The patient was transferred to PACU in stable condition.
[2021-06-09] MEDS: ondansetron HCL 4 MG/2 ML VIAL IVPUSH (09:10)
[2021-06-09] MEDS: oxyCODONE HCl Immed Release 5 MG TABLET PO (09:11)
--- NOTE | 2021-06-09 09:48 | PC.NURSE ---
DR. KRUSE AT BEDSIDE. UPDATED PATIENT COMPLAINTS ABDOMINAL DISCOMFORT REVIEWED MEDICATIONS GIVEN.PATIENT SLEEPY, APPEARS COMFORTABLE. HEART RATE MID SB 50'S WHILE RESTING. PER M.D. CONTINUE TO MONITOR.
== END 2021-06-09 11:08 | disposition home or self-care (01) ==
PROVIDERS: Visit Provider Surgery
PROC: 0FT44ZZ Resection of Gallbladder, Percutaneous Endoscopic Approach (ICD-10-PCS; CPT 47562; principal; 2021-06-09 07:30)
DX: K80.10 Calculus of gallbladder with chronic cholecystitis without obstruction (principal); K66.0 Peritoneal adhesions (postprocedural) (postinfection); K21.9 Gastro-esophageal reflux disease without esophagitis; K58.9 Irritable bowel syndrome, unspecified; Z79.899 Other long term (current) drug therapy; Z88.8 Allergy status to other drugs, medicaments and biological substances; Z90.49 Acquired absence of other specified parts of digestive tract
CPT/HCPCS: 47562; 88304; J1100; J2250; J2405; J3010

== ENCOUNTER → 2021-06-17 09:00 | Outpatient (BNVA) | payer OTHER, SELFPAY | PROVIDERS: Visit Provider Surgery | DX: Z48.815 Encounter for surgical aftercare following surgery on the digestive system (principal); Z90.49 Acquired absence of other specified parts of digestive tract | CPT/HCPCS: 99212 ==

== ENCOUNTER 2021-07-24 16:45 | Emergency (ER) | payer OTHER, SELFPAY ==
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
[2021-07-24 17:00] VITALS: BP 126/76; BP 188/100; PULSE 78; PULSE 88; RESP 20; TEMP 37.1; O2SAT 98; BMI 35.4
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
[2021-07-24] MEDS: Cyclobenzaprine HCl 10 MG TABLET PO (17:37)
[2021-07-24] MEDS: Ketorolac Tromethamine 30 MG/ML VIAL IM (17:41)
[2021-07-24 19:00] VITALS: BP 131/77; PULSE 66; RESP 16; TEMP 36.9; O2SAT 99
--- NOTE | 2021-07-24 21:06 | PC.NURSE ---
HARD COLLAR REMOVED BY JENNIFER RUIZ AFTER CT REVIEWED.
== END 2021-07-24 21:09 | disposition home or self-care (01) ==
PROVIDERS: Emergency Provider Internal Medicine
DX: S13.4XXA Sprain of ligaments of cervical spine, initial encounter (principal); V43.52XA Car driver injured in collision with other type car in traffic accident, initial encounter; Y93.89 Activity, other specified; Y92.481 Parking lot as the place of occurrence of the external cause; Y99.8 Other external cause status
CPT/HCPCS: 70450; 72125; 96372; 99284; J1885

== ENCOUNTER 2023-06-07 15:23 | Emergency (ER) | payer OTHER, SELFPAY ==
[2023-06-07 15:26] VITALS: BP 132/88; PULSE 75; RESP 16; TEMP 36.2; O2SAT 98; BMI 37.8
== END 2023-06-07 21:42 | disposition left against medical advice (07) ==
PROVIDERS: Emergency Provider Emergency Medicine
DX: R51.9 Headache, unspecified (principal); S49.92XA Unspecified injury of left shoulder and upper arm, initial encounter; W19.XXXA Unspecified fall, initial encounter; Y93.9 Activity, unspecified; Y92.9 Unspecified place or not applicable; Y99.9 Unspecified external cause status; Z53.21 Procedure and treatment not carried out due to patient leaving prior to being seen by health care provider
CPT/HCPCS: 99281

== ENCOUNTER 2023-06-08 01:15 | Emergency (ER) | payer OTHER, SELFPAY ==
[2023-06-08 01:20] VITALS: BP 122/90; PULSE 83; RESP 18; TEMP 36.4; O2SAT 99; BMI 37.9
[2023-06-08 03:14] VITALS: BP 131/79; PULSE 96; RESP 16; TEMP 37.1; O2SAT 99
--- NOTE | 2023-06-08 04:06 | ED_ITS ---
HPI - Fall General Chief Complaint: Fall Stated Complaint: left earlier, fall, headache, shoulder pain Time Seen by Provider: 06/08/23 04:06 Source: patient Mode of arrival: ambulatory Limitations: no limitations History of Present Illness HPI Narrative: Patient comes to the emergency room complaining of left shoulder blade pain. Patient states that yesterday she fell approximately 20 hours ago. Patient states that she slipped down approximately 6 steps landing on the left shoulder blade and hit the posterior scalp. Patient states that yesterday she went to physical therapy, due to the acute pain they refused to work with her. They sent the patient to the primary care physician who sent her to the emergency room for imaging. Patient denies loss of consciousness, patient not on blood thinners Related Data Home Medications Medication Instructions Recorded Confirmed naratriptan 2.5 mg tablet 2.5 mg PO DAILY PRN Migraine 05/14/21 06/17/21 Headache promethazine 25 mg tablet 25 mg PO TID PRN Nausea 05/14/21 06/17/21 omeprazole 20 mg capsule,delayed 20 mg PO DAILY 06/17/21 06/17/21 release Previous Rx's Medication Instructions Recorded oxycodone-acetaminophen 5 mg-325 1 tab PO Q6H PRN pain (scale score 06/09/21 mg tablet (Endocet) 7-10) #20 tabs cyclobenzaprine 10 mg tablet 10 mg PO TID PRN cervical strain 7 07/24/21 days #21 tabs Allergies Allergy/AdvReac Type Severity Reaction Status Date / Time morphine [Morphine] Allergy Unknown RASH, Verified 06/08/23 01:20 Chest pain,rash, itchy sumatriptan [Imitrex] Allergy Unknown Migraines Verified 06/08/23 01:20 get worse zolmitriptan [From ZOMIG] AdvReac Unknown HEADACHES Verified 06/08/23 01:20 Review of Systems Review of Systems: Constitutional : No Weight loss, No Fever, No Chills, No Night Sweats, No Fatigue, No Malaise ENT/Mouth : No Hearing loss, No Ear Pain, No Nasal Congestion, No Sinus Pain, No Hoarseness, No sore throat, No Rhinorrhea, No Swallowing Difficulty Eyes: No Eye Pain, No Swelling, No Redness, No Foreign Body, No Discharge, No Vision Changes Cardiovascular : No Chest Pain, No SOB, No Dyspnea on Exertion, No Orthopnea, No Edema, No Palpitations Respiratory : No Cough, No Sputum, No Wheezing, No Smoke Exposure, No Dyspnea Gastrointestinal : No Nausea, No Vomiting, No Diarrhea, No Constipation, No abdominal Pain, No Hematochezia, No Melena Genitourinary : no irregular bleeding, No Dysuria, No Urinary Frequency, No Hematuria, No Urinary Incontinence, No Urgency, No Flank Pain, No Urinary Flow Changes, No Hesitancy Musculoskeletal : Complaining of left shoulder and left scapular pain No Myalgias, No Joint Swelling Skin : No Skin Lesions, No rash Neuro : No Weakness, No Numbness, No Paresthesias, No Loss of Consciousness, No Dizziness, complaining of mild Headache Psych : No Anxiety/Panic, No Depression, No SI/HI/AH/VH, No Social Issues, Heme/Lymph: No Bruising, No Bleeding,No Lymphadenopathy Endocrine : No Polyuria, No Polydipsia, No Temperature Intolerance PMFSH Past Medical History Medical History History of anemia Migraine Restless legs IBS (irritable bowel syndrome) Acid reflux Surgical History History of bilateral tubal ligation History of heart surgery S/P laparoscopic cholecystectomy (06/09/21) Family History Family History Paternal Aunt Breast cancer Paternal Grandfather Colon cancer Paternal Uncle Cancer of unknown origin Maternal Grandmother Kidney carcinoma Social History Social History Are you a primary laboratory animal caretaker to a significant other at home: No Do you presently have visiting nurse or other home services: No Alcohol intake: never Patient Tobacco Use Status: Never used Tobacco Smoked in Last 30 Days: No Use of substances other than those prescribed or required for medical reasons: No Advance Directives: No Advance Directives Information Provided: Yes Patient : No Physical Exam Vital Signs: Vital Signs: Last Vital Signs Temp 98.7 F 06/08/23 03:14 Pulse 96 06/08/23 03:14 Resp 16 06/08/23 03:14 BP 131/79 06/08/23 03:14 Pulse Ox 99 06/08/23 03:14 O2 Del Method Room Air 06/08/23 03:14 BMI result Body Mass Index 37.9 Const: Other: Appearance: Alert. Oriented X3. No acute distress but does look uncomfortable Eyes: Pupils equal, round and reactive to light. ENT: Pharynx normal. Neck: Normal inspection. Neck supple. No lymph nodes noted. No crepitus CVS: Normal heart rate and rhythm. Pulses normal. Normal S1 and S2 Respiratory: No respiratory distress. Breath sounds normal. No Wheezing. No rales Abdomen: Soft and nontender. No rigidity. No distention. Skin: Skin warm and dry. Normal skin color. Normal skin turgor. Extremities: No lower extremity edema. No Lacerations. Patient has pain moving her left arm. Neuro: Oriented X 3. No motor deficit. No sensory deficit. Moving all extremities. No slurred speech. CN 2 through 12 grossly intact Psych: calm, cooperative, normal affect Medical Decision Making Medical Decision Making MDM Narrative: -I discussed with the patient that to get a full assessment we need imaging, at least I strongly recommend getting x-rays although CT scans would be preferred. However, the radiology's running behind in the estimate time of waiting from the time the CT scan is known to the time the results are available is approximately 3-4 hours. X-rays would be much faster. -patient states that she does not want to wait for the CT scan or x-rays. -patient is neurologically intact, alert and oriented x3, coherent Differential Diagnosis Differential Diagnoses: The differential diagnosis associated with the pres entation includes (Head contusion, concussion, intracranial bleed. Shoulder dislocation, fracture, scapular fracture, contusion) Discharge Plan Discharge Clinical Impression: Fall, Musculoskeletal pain Patient Disposition: Home, Self-Care Instructions: Musculoskeletal Pain (ED) Additional Instructions: You were unable to stay and complete full evaluation with either x-rays or CT scan, and requested to be discharged. Please follow-up with your primary care physician tomorrow. If you have any worsening or new symptoms, please return to the emergency room or call 911 Prescriptions: No Action oxycodone-acetaminophen [Endocet] 5-325 mg tablet 1 tab PO Q6H PRN (Reason: pain (scale score 7-10)) Qty: 20 0RF cyclobenzaprine 10 mg tablet 10 mg PO TID PRN (Reason: cervical strain) 7 Days Qty: 21 0RF promethazine 25 mg tablet 25 mg PO TID PRN (Reason: Nausea) naratriptan 2.5 mg tablet 2.5 mg PO DAILY PRN (Reason: Migraine Headache) omeprazole 20 mg capsule,delayed release(DR/EC) 20 mg PO DAILY
--- NOTE | 2023-06-08 04:09 | PC.NURSE ---
pt requesting to leave at this time, provider and charge account identification clerk aware.
== END 2023-06-08 04:10 | disposition home or self-care (01) ==
PROVIDERS: Emergency Provider Emergency Medicine
DX: S09.90XA Unspecified injury of head, initial encounter (principal); S49.92XA Unspecified injury of left shoulder and upper arm, initial encounter; W10.9XXA Fall (on) (from) unspecified stairs and steps, initial encounter; Y93.9 Activity, unspecified; Y92.9 Unspecified place or not applicable; Y99.8 Other external cause status
CPT/HCPCS: 99282; 99284

== ENCOUNTER 2024-10-21 09:25 | Outpatient (AMB) | payer OTHER, SELFPAY ==
--- NOTE | 2024-10-21 09:28 | A.OFFVIS_ITS ---
Vital Signs 10/21/24 09:29 Height 5 ft 3 in Intake Visit Reasons: FU AFTER AMB EEG Allergies morphine (Morphine) Allergy (Unknown, Verified 10/21/24 09:33) RASH, Chest pain,rash, itchy sumatriptan (Imitrex) Allergy (Unknown, Verified 10/21/24 09:33) Migraines get worse zolmitriptan (From ZOMIG) Adverse Reaction (Unknown, Verified 10/21/24 09:33) HEADACHES Medication List - Last Reconciled 10/21/24 by Jessica Amaya CNP atogepant (Qulipta) 30 mg PO DAILY cyclobenzaprine 10 mg PO TID PRN 7 days famotidine 20 mg PO DAILY PRN ibuprofen 600 mg PO QID PRN methocarbamol 500 mg PO TID PRN mirabegron ER (Myrbetriq) 25 mg PO DAILY naratriptan 2.5 mg PO DAILY PRN oxycodone-acetaminophen 5-325 mg (Endocet) 1 tab PO Q6H PRN promethazine 25 mg PO BID PRN topiramate 50 mg PO BID HPI Comments Details: 39 yo RH woman with headaches since she was a teenager, and cardiac history s/p surgical repair as an infant 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 Migraines were still happening about 1x/week with photophobia, sonophobia, nausea, and sometimes vomiting. Headaches were all over head, throbbing-type pain. No specific triggers. She tried Qulipta sample as needed which helped, but insurance did not approve. Naratriptan as needed did not help. Sumatriptan and zolmitriptan made migraines worse. Sleep was still not so good. She was sometimes?smelling cigarette smoke when there was none around. It was happening once in a while now. Previously, it was happening almost every day.?Sometimes it was brief and lasted few minutes or less, and other times it was bit longer. Sometimes she got slight headache afterward, but not always. It last happened when she was having ambulatory EEG. [facility] Medical History (Updated 10/21/24 @ 09:58 by Jessica Amaya CNP) Paresthesia of skin Migraine without aura History of anemia Migraine Restless legs IBS (irritable bowel syndrome) Acid reflux Surgical History S/P laparoscopic cholecystectomy (06/09/21) History of heart surgery History of bilateral tubal ligation Family History (Updated 10/17/24 @ 17:26 by Ellen Neves MA) Paternal Aunt Breast cancer Paternal Grandfather Colon cancer Paternal Uncle Cancer of unknown origin Maternal Grandmother Kidney carcinoma Father Headache Mother Headache Son Headache Daughter Headache Social History Are you a primary director day care center to a significant other at home: No Do you presently have visiting nurse or other home services: No Alcohol intake: never Patient Tobacco Use Status: Never used Tobacco Review of Systems Const Denies chills, Denies daytime sleepiness, Reports difficulty sleeping, Denies fatigue, Denies fever(s), Denies frequent falls, Reports headache(s), Denies increased appetite, Denies poor appetite, Reports snoring, Denies weakness, Denies weight gain and Denies weight loss Eyes Denies loss of vision ENT Denies vertigo, Denies dizziness and Reports headache(s) Card Denies chest pain at rest, Denies chest pain with activity, Denies leg edema and Reports palpitations Resp Reports snoring GI Denies constipation, Denies heartburn, Denies diarrhea and Reports nausea Denies urinary frequency, Denies urinary incontinence and Denies urinary urgency Musc Denies abnormal gait, Denies numbness and Denies tingling Skin/Breast Denies dry skin and Denies rash Neuro Denies Abnormal speech present, Denies abnormal gait, Denies vertigo, Denies dizziness, Denies frequent falls, Reports headache(s), Denies lack of coordination, Denies loss of vision, Denies memory loss, Denies numbness, Denies restless legs, Denies seizure-like activity, Denies tingling, Denies paresthesias, Denies tremor(s) and Denies weakness Psych Reports anxiety, Denies depression, Denies auditory hallucinations, Denies memory loss, Denies visual hallucinations and Denies suicidal ideation Endo Denies fatigue and Reports palpitations Physical Exam Const Other: General Appearance:? normal, in no acute distress. Skin:? no rashes, no significant birthmarks. Heart:? S1, S2 normal, no murmurs. Lungs:? clear anteriorly and posteriorly. Extremities:? no edema. Psych:? alert, oriented, cognitive function intact, cooperative with exam. Neuro Other: Mental Status:?Normal attention, orientation, memory and affect.? Cranial Nerves:?Pupils are equal, round and reactive to light. External occular muscles are intact. Visual almonte are full. Face is symmetrical. Facial sensations are normal. Tongue is midline. Palate elevates symmetrically. Shoulder shrugging is normal. Hearing to bedside conversation is normal. Motor Examination:?Normal muscle tone, bulk and strength,?Deep tendon reflexes are 2+,?Plantars are flexor.? Sensory Exam:?....? Coordination:?No ataxia,?no titubation.? Gait Exam: Within normal limits. Cerebellar Signs:?[id number] and [id number] is normal.? Extrapyramidal System:?No tremor, rigidity with normal facial expressions.? Pronator Drift:?Not present.? Involuntary Movements:?No tremors seen.? Speech:?Normal.? Speech: No Abnormal speech present Results Reviewed Results Reviewed: 48hr EEG at [facility] 10/15/2024: 1. No significant EEG abnormality 2. Intermittent second-degree heart block EEG in office in May 2023: Mild slowing with no evidence of seizure disorder. [place] [facility] [facility] [place] [facility] [place] [facility] Assessment & Plan Assessment & Plan (1) Migraine without aura: Code(s): G43.009 - Migraine without aura, not intractable, without status migrainosus Category: Medical Qualifiers: Status migrainosus presence: without status migrainosus Intractability: not intractable Qualified Code(s): G43.009 - Migraine without aura, not intractable, without status migrainosus Plan: Naratriptan as needed did not help. She tried sumatriptan and zolmitriptan which caused worsening migraines. Qulipta as needed helped, but was not covered by insurance. Will try Ubrelvy as needed for migraines. Continue topiramate 50mg twice a day. (2) Second degree heart block: Code(s): I44.1 - Atrioventricular block, second degree Category: Medical Plan: Reviewed 48hr EEG results which revealed periods of intermittent second-degree heart block lasting few seconds at a time. 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 She was advised to follow up with cardiology for this finding and referral was placed. Plan Meds tried: Topiramate, sumatriptan (worsening migraines), zolmitriptan (worsening migraines, naratriptan (did not help), Qulipta (helped, but not covered by insurance) Orders: Referrals Cardiology Referral I44.1 - Atrioventricular block, second degree Medications: New topiramate 50 mg PO BID 180 tabs 1RF 90 days ubrogepant (Ubrelvy) 100 mg orally 1 tablet as needed for migraine; 10 tabs 2RF 30 days Discontinued naratriptan Discontinued Reason: Order 2.5 mg PO DAILY PRN Migraine Headache atogepant (Qulipta) Discontinued Reason: Order 30 mg PO DAILY topiramate Discontinued Reason: Order 50 mg PO BID Coding Level of Care Code Est Pt Level 4 (42218) Diagnoses Migraine without aura and without status migrainosus, not intractable G43.009 Status migrainosus presence: without status migrainosus Intractability: not intractable Second degree heart block I44.1
--- OUTSIDE RECORDS SUMMARY | 2024-10-21 09:55 | XMS_ITS | Clinical Summary ---
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 Workstation ID: [id number] Transcribed By: Self Edit Transcribed Date: 07/23/2024 20:09 ET Narrative 07/23/2024 8:11 PM EDT EXAM: Screening mammogram CLINICAL: 39 years old, Female, routine annual exam. COMPARISON: This is a baseline exam. TECHNIQUE: Bilateral MLO and CC views were obtained digitally with digital breast tomosynthesis. Computer-aided detection was utilized in evaluation of this exam (CAD). FINDINGS: Asymmetry in the anterior inner right breast on the CC projection. Additional imaging evaluation recommended. Otherwise, no suspicious mass, architectural distortion, or suspicious calcifications. Ying Gonzales CNM IMG BI PROCEDURES Final Res ult * Cervical Cancer Screening: HPV (08/16/2021) Pathologist [facility] Cervical Cancer Screening: HPV abstracted, negative Historical Provider HEALTH MAINTENANCE Final Result * (ABNORMAL) Lipid panel (06/11/2020) Pathologist [facility] LDL/HDL Ratio 3 0 - 4 Triglycerides 75 0 - 150 mg/dL Cholesterol 174 0 - 200 mg/dL HDL 54 >=40 mg/dL LDL Cholesterol 105(A) 0 - 100 mg/dL Blood Venous blood specimen / Unknown Historical Provider LAB BLOOD ORDERABLES Lorraine l Result from Last 3 Months or Most Recently Relevant to Health Maintenance Insurance [facility] [employer] 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
--- OUTSIDE RECORDS SUMMARY | 2024-10-21 09:55 | XMS_ITS | Clinical Summary ---
Author Organization [facility] Address [address] [place] [address] Care Team Providers Care Tutorial Laboratory Supervisor Name Role Phone Unavailable Primary Care Provider Unavailabl e Social History Tobacco Use Types Packs/Day Years Used Date Smoking Tobacco: Never Assessed Comments Unknown Sex and Gender Information Value Date Recorded Sex Assigned at Not on file Legal Sex Female 6:26 PM EST Gender Identity Not on file Sexual Orientation Not on file Plan of Treatment Health Maintenance Due Date Last Done Comments Hepatitis C Virus Screening 1984 HIV Screening 01/10/1997 DTaP/Tdap/Td Vaccines (1 - Tdap) 01/10/2003 Hepatitis B Vaccines (1 of 3 - 19+ 3-dose series) 01/10/2003 COVID-19 Vaccine ( - 2023-2 5 season) 2023 09/18/2020, 08/28/2020 HPV Vaccines Aged Out No longer eligi ble based on patient's age to complete this topic Pneumococcal Vaccine: Pediatric (0-5 Years) and At-Risk Patients (6 to 49 Years) Aged Out No longer eligible b ased on patient's age to complete this topic
--- OUTSIDE RECORDS SUMMARY | 2024-10-21 09:55 | XMS_ITS | Encounter Summary ---
Author Organization [facility] Address [address] [place] [address] Care Team Providers Care Lens Coating Technician Name Role Phone Fadia Arcos MD Primary Care Prov ider Marina Mcguire MD Unavailable [phone] Margarita Quevedo PA-C Unavailable Antwon Camilo PA-C Unavailable Encounter Details Date Type Department Care Team Description 08/16/2023 SCAN [facility] Medical [facility] Neurosurgery [place] [address] [phone] Margarita Quevedo PA-C [address] [id number] Social History Tobacco Use Types Packs/Day Years Used Date Smoking Tobacco: Never Smokeless Tobacco: Never Alcohol Use Standard Drinks/Week Comments No 0 (1 standard drink = 0.6 oz pur e alcohol) Sex Assigned at Date Recorded Not on file Job Start Date Occupation Industry Not on file Not on file Not on file documented as of this encounter Plan of Treatment Not on file documented as of this encounter Visit Diagnoses Not on filedocumented in this encounter Care Teams Lens Coating Technician Relationship Specialty Start Date End Date Fadia Arcos MD [address] [place] [phone] PCP - General Internal Medicine 02/14/22 Marina Mcguire MD [address] [id number] Surgeon Neurosurgery 04/26/23 Margarita Quevedo PA-C [address] [phone] Specialist Neurosurgery 04/26/23 Antwon Camilo PA-C [address] [address] Specialist Neurosurgery 04/26/23 documented as of this encounter
--- OUTSIDE RECORDS SUMMARY | 2024-10-21 09:55 | XMS_ITS | Clinical Summary ---
Author Organization [facility] Address [address] [place] [phone] Phone Care Team Providers Care Fringing Machine Operator Name Role Phone Unavailable Primary Care Provider Unavailabl e Immunizations Immunization Administration Dates Next Due DTP 06/06/1989, 8,04/04/1985,1984,1984 Hep B, ped/adol 02/02/1998,09/19/1997,08/14/1997 MMR 07/13/1990,01/13/1986 OPV 06/06/1989, 8,04/04/1985,1984 Td (adult) (MBL), 2 Lf tetan us toxoid, PF, adsorbed 04/14/2000 Social History Tobacco Use Types Packs/Day Years Used Date Smoking Tobacco: Never Assessed Comments Unknown Sex and Gender Information Value Date Recorded Sex Assigned at Not on file Legal Sex Female 4:12 PM EDT Gender Identity Not on file Sexual Orientation Not on file Plan of Treatment Health Maintenance Due Date Last Done Comments Varicella Vaccines (1 of 2 - 13+ 2-dose series) 01/10/1997 COVID-19 Vaccine ( season) 2023 09/18/2020, 08/28/2020 Influenza Vaccines (#1) 2024 01/07/20 21, 02/03/2017, 12/22/2011, Additional history exists DTaP,Tdap,and Td Vaccines (8 - Td or Tdap) 01/15/2027 01/15/2017, 11/03/2016, [...] on patient's age to complete this topic Men B Vaccine Aged Out No longer elig ible based on patient's age to complete this topic Meningococcal Vaccine Aged Out No lul malena eligible based on patient's age to complete this topic Pneumococcal Vaccine Aged Out No long er eligible based on patient's age to complete this topic
== END 2024-11-21 14:55 | disposition home or self-care (01) ==
LOC: HO.HSM 09:25
PROVIDERS: PCP Internal Medicine; Referring Provider Neurological Surgery; Visit Provider Registered Nurse
DX: G43.009 Migraine without aura, not intractable, without status migrainosus (principal); I44.1 Atrioventricular block, second degree
CPT/HCPCS: 99214

== ENCOUNTER → 2024-10-21 09:25 | Outpatient (BNVA) | payer OTHER, SELFPAY | PROVIDERS: PCP Internal Medicine; Referring Provider Neurological Surgery; Visit Provider Registered Nurse | DX: G43.009 Migraine without aura, not intractable, without status migrainosus (principal); I44.1 Atrioventricular block, second degree | CPT/HCPCS: 99212 ==

== ENCOUNTER 2025-02-19 08:34 | Outpatient (AMB) | payer OTHER, SELFPAY ==
--- NOTE | 2025-02-19 08:36 | A.OFFVIS_ITS ---
Intake Visit Reasons: sz Allergies morphine (Morphine) Allergy (Unknown, Verified 02/19/25 08:38) RASH, Chest pain,rash, itchy sumatriptan (Imitrex) Allergy (Unknown, Verified 02/19/25 08:38) Migraines get worse zolmitriptan (From ZOMIG) Adverse Reaction (Unknown, Verified 02/19/25 08:38) HEADACHES Medication List - Last Reconciled 02/19/25 by Jessica Amaya CNP esomeprazole magnesium 40 mg PO QAM ibuprofen 600 mg PO QID PRN mirabegron ER (Myrbetriq) 25 mg PO DAILY topiramate 50 mg PO BID 90 days ubrogepant (Ubrelvy) 100 mg orally 1 tablet as needed for migraine; 30 days HPI Comments Details: 40-year-old RH woman with headaches since she was a teenager, and cardiac history s/p surgical repair as an infant following with manager labor delivery in [place], 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 She previously worked in [employer] for the last 10 years. She was having more migraines. She has had migraine for the last week, and more dizzy spells with nausea over the last 3 weeks. Pain was all over head, throbbing-type, with photophobia and nausea. Ubrelvy as needed was not helping. Sleep was not so good. She had upper endoscopy at [facility] in 01/2025 and was still waiting for follow up appointment with cardiology. No recent episodes of smelling cigarette smoke. [facility] Medical History (Updated 10/21/24 @ 09:58 by Jessica Amaya CNP) Paresthesia of skin Migraine without aura History of anemia Migraine Restless legs IBS (irritable bowel syndrome) Acid reflux Surgical History S/P laparoscopic cholecystectomy (06/09/21) History of heart surgery History of bilateral tubal ligation Family History (Updated 10/17/24 @ 17:26 by Ellen Neves MA) Paternal Aunt Breast cancer Paternal Grandfather Colon cancer Paternal Uncle Cancer of unknown origin Maternal Grandmother Kidney carcinoma Father Headache Mother Headache Son Headache Daughter Headache Social History Are you a primary career development director to a significant other at home: No Do you presently have visiting nurse or other home services: No Alcohol intake: never Patient Tobacco Use Status: Never used Tobacco Review of Systems Const Denies chills, Denies daytime sleepiness, Reports difficulty sleeping, Denies fatigue, Denies fever(s), Denies frequent falls, Reports headache(s), Denies increased appetite, Denies poor appetite, Reports snoring, Denies weakness, Denies weight gain and Denies weight loss Eyes Denies loss of vision ENT Denies vertigo, Denies dizziness and Reports headache(s) Card Denies chest pain at rest, Denies chest pain with activity, Denies leg edema and Reports palpitations Resp Reports snoring GI Denies constipation, Denies heartburn, Denies diarrhea and Reports nausea Denies urinary frequency, Denies urinary incontinence and Denies urinary urgency Musc Denies abnormal gait, Denies numbness and Denies tingling Skin/Breast Denies dry skin and Denies rash Neuro Denies abnormal gait, Denies vertigo, Denies dizziness, Denies frequent falls, Reports headache(s), Denies lack of coordination, Denies loss of vision, Denies memory loss, Denies numbness, Denies restless legs, Denies seizure-like activity, Denies tingling, Denies paresthesias, Denies tremor(s) and Denies weakness Psych Reports anxiety, Denies depression, Denies auditory hallucinations, Denies memory loss, Denies visual hallucinations and Denies suicidal ideation Endo Denies fatigue and Reports palpitations Physical Exam Const Other: General Appearance:? normal, in no acute distress. Skin:? no rashes, no significant birthmarks. Heart:? S1, S2 normal, no murmurs. Lungs:? clear anteriorly and posteriorly. Extremities:? no edema. Psych:? alert, oriented, cognitive function intact, cooperative with exam. Neuro Other: Mental Status:?Normal attention, orientation, memory and affect.? Cranial Nerves:?Pupils are equal, round and reactive to light. External occular muscles are intact. Visual almonte are full. Face is symmetrical. Facial sensat ions are normal. Tongue is midline. Palate elevates symmetrically. Shoulder shrugging is normal. Hearing to bedside conversation is normal. Sensory Exam:?....? Coordination:?No ataxia,?no titubation.? Gait Exam: Within normal limits. Cerebellar Signs:?Cwfsor-tt-riai is okay. Extrapyramidal System:?No tremor, rigidity with normal facial expressions.? Pronator Drift:?Not present.? Involuntary Movements:?No tremors seen.? Speech:?Normal.? Results Reviewed Results Reviewed: 48hr EEG at [facility] 10/15/2024: 1. No significant EEG abnormality 2. Intermittent second-degree heart block EEG in office in May 2023: Mild slowing with no evidence of seizure disorder. CT brain [place] [facility] [place]: WNL CT brain WO [place] [facility] [place]: WNL Assessment & Plan Assessment & Plan (1) Migraine without aura: Code(s): G43.009 - Migraine without aura, not intractable, without status migrainosus Category: Medical Qualifiers: Status migrainosus presence: without status migrainosus Intractability: not intractable Qualified Code(s): G43.009 - Migraine without aura, not intractable, without status migrainosus Plan: Ubrelvy as needed did not help and medication was stopped. Increase topiramate 1 tablet in the morning 2 tablets at bedtime. Start [id number]-[id number] 5--325-40mg 1-2 tablets as needed for headache #10 for 30 days, use/side effects reviewed. Start ondansetron 4mg 1 tablet as needed for nausea/vomiting, use/side effects reviewed. Follow up 4-6 weeks or sooner as needed. (2) Second degree heart block: Code(s): I44.1 - Atrioventricular block, second degree Category: Medical Plan: 48hr EEG results revealed periods of intermittent second-degree heart block lasting few seconds at a time. She was following with manager labor delivery in [place] ([address] [place] [address]) and was last seen on 09/24/2024. She was advised to follow up with cardiology for this finding and cardiology referral was placed at previous visit on 10/21/2024. She has not had follow up appointment yet. Plan Meds tried: Topiramate, sumatriptan (worsening migraines), zolmitriptan (worsening migraines), naratriptan (did not help), Qulipta (helped, but not covered by insurance), Ubrelvy (did not help) Medications: New topiramate 50 mg orally 1 tablet in the morning and 2 tablets at bedtime; 270 tabs 1RF 90 days huvqfomxyk-tepzxpbavacrw-tcpd 50-325-40 mg 1 tab PO DAILY 10 tabs 2RF headache 30 days ondansetron 4 mg PO DAILY PRN 10 tabs 2RF nausea and vomiting 30 days Discontinued topiramate Discontinued Reason: Doctor's Order 50 mg PO BID 90 days 180 tabs 1RF ubrogepant (Ubrelvy) Discontinued Reason: Doctor's Order 100 mg orally 1 tablet as needed for migraine; 30 days 10 tabs 2RF Coding Level of Care Code Est Pt Level 4 (59932) Diagnoses Migraine without aura and without status migrainosus, not intractable G43.009 Status migrainosus presence: without status migrainosus Intractability: not intractable Second degree heart block I44.1
--- OUTSIDE RECORDS SUMMARY | 2025-02-19 08:51 | XMS_ITS | Clinical Summary ---
Author Organization [address] Address [address] [place] [phone] Phone Care Team Providers Care Radio Rigger Name Role Phone Fadia Ramos MD Primary Care Prov ider Allergies Active Allergy Reactions Criticality Noted Date Comments Amitriptyline Headache,Nausea Only 03/21/2024 Morphine 03/21/2024 Sumatriptan 07/18/2007 Injection Zolmitriptan 11/11/2009 Dizziness and nausea Medications aluminum-magnes ium hydroxide-simet hicone (MAALOX) 200-200-20 mg/5 [...] muscle spasms. 30 tablet 1 5 Active Additional Information Patient not taking.Reported on 01/14/2025 ibuprofen (ADVIL,MOTRIN) 600 mg tablet Take 1 tablet (600 mg total) by mouth 4 (four) times a day if needed (pain). 60 tablet 1 5 Active Additional Information Patient not taking.Reported on 01/14/2025 Ubrelvy 100 mg tablet TAKE 1 TABLET BY MOUTH DAILY NEEDED FOR MIGRAINE. 5 Active albuterol HFA (PROAIR HFA ; PROVENTIL HFA ; VENTOLIN HFA) 90 mcg/actuation inhaler Inhale 2 puffs by mouth Every 4 hours as needed. 5 09/25/19 26 Active esomeprazole (NexIUM) [address] capsule Take 1 capsule (40 mg total) by mouth 1 (one) time each day before breakfast. Do not open capsule. 30 each 3 5 01/15/20 26 Active meloxicam (MOBIC) 15 mg tablet Take 1 tablet (15 mg total) by mouth 1 (one) time each day. 30 tablet 5 01/23/20 25 Active Problems Problem Noted Date Diagnosed Date Family history of breast cancer 03/07/2024 Overview (03/07/2024): Pt tested BRCA neg in 2020 History of varicose veins 01/31/2024 Cervical spondylosis with radiculopathy 04/26/19 24 Overview (01/31/2024): Last Assessment & Plan: Ms. Mendiola was last evaluated in April of this [...] in mind I will refer her to [facility] cardiac surgery. I did have a discussion with the surgeon about her and he will go over the films and decide on a plan from there. Helicobacter pylori gastritis 07/01/2021 Overview (01/31/2024): Eradicated 06/2021 COVID-19 03/05/2021 Severe obesity (BMI 35.0-39. 9) with comorbidity (CMS/[facility] V24, CMS/[facility] V28) 05/09/2019 Pain of foot 10/18/2013 Overview [...] Encounters Date Type Department Care Team Description 02/06/2025 8:35 AM EDT - 02/06/2025 11:59 PM EDT Hospital Encounter [facility] MRI [address] [place] [address] Disorder of ligament of ankle, right Discharge Disposition: Home or Self Care 02/06/2025 Telephone Obstetrics and Gynecology - [address] [phone] Ying Gonzales CNM 01/16/2025 10:00 AM EDT Office Visit Orthopedic Surgery [facility] [address] [phone] Manuel Muñoz, DPM Pain in right foot (Primary Dx); Peroneal tendinitis of lower leg, right; Disorder of ligament of ankle, right 01/15/2025 1:27 PM EDT Anesthesia Event [facility] Endoscopy [address] [place] [phone] Azar Jimenez DO 01/15/2025 11:11 AM EDT - 01/15/2025 11:59 PM EDT Hospital Encounter [facility] Endoscopy [address] [place] [phone] Saturnino Villalobos MD Steele, Matthew G, CRNA Dysphagia, unspecified type; Gastroesophageal reflux disease without esophagitis Discharge Disposition: Home or Self Care 01/14/2025 11:10 AM EDT Consult Gastroenterology [facility] 175 [facility] [address] [phone] Caitlin Solomon PA Gastroesophageal reflux disease without esophagitis (Primary Dx); Helicobacter pylori gastritis; Dysphagia, unspecified type 12/23/2024 9:00 AM EDT Office Visit Orthopedic Surgery [facility] [address] [phone] Manuel Muñoz, DPM Pain in right foot (Primary Dx); Plantar fasciitis; Peroneal tendinitis of lower leg, right from Last 3 Months Immunizations Immunization Administration Dates Next Due DTP [...] Date Site/Laterality Comments OTHER SURGICAL HISTORY PROCEDURE: GA EXC COARCJ AORTA W/WO PDA W/DIRECT ANASTOMOSIS; COMMENT: 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 For example, children's attendant or elderly care for an older adult? [...] Date Recorded What is your living situation? Unrecognized valu e 03/07/2024 Interpersonal Safety Answer Date Record ed Physical Abuse Unrecognized value 01/15/2025 Verbal Abuse Unrecognized value 01/15/2025 Comments No Sex and Gender Information Value [...] Genera sruthi. Please review and update details. 2017 Term Vag-S pont Livin g Last Filed Vital Signs Vital Sign Reading Time Taken Comments Blood Pressure 114/77 01/15/2025 2:11 PM EDT Pulse 67 01/15/2025 2:11 PM EDT Temperature 35.7 C (96.3 F) 01/15/2025 12:50 PM EDT Respiratory Rate 15 01/15/2025 2:11 PM EDT Oxygen Saturation 100% 01/15/2025 2:11 PM EDT Inhaled Oxygen Concentration - - Weight 83.9 kg (185 lb) 01/15/2025 12:50 PM EDT Height 160 cm (5' 3 ) 01/15/2025 12:50 PM EDT Body Mass Index 32.77 01/15/2025 12:50 PM EDT Plan of Treatment Upcoming Encounters Date Type Department Care Team (Late st Contact Info) Description 03/04/2025 8:45 AM EST Office Visit Orthopedic Surgery - [place] [address] [place] [phone] Manuel Muñoz, MARY [address] [place] [phone] 07/10/2025 11:10 AM EDT Office Visit Gastroenterology - 299 [facility] 299 [facility] [address] [place] [phone] Caitlin Solomon PA 299 [facility] [address] [place] [address] 07/25/2025 11:10 AM EDT Appointment Radiology Department - [address] [phone] Health Maintenance Due Date Last Done Comments HPV Vaccines (1 - 3-dose SCDM series) 01/10/2011 HIV Screening 03/20/2022 Hepatitis C Screening 03/20/2022 Depression Screening 04/17/2024 03/07/2024 COVID-19 Vaccine ( - season) 2024 09/18/2020, 08/28/2020 Social Influencers of Health Screening 03/07/2025 03/07/2024 Cholesterol Screening (Lipid Panel) 06/11/2025 06/11/2020 Breast Cancer Screening 07/31/2026 07/31/2024, 07/23 Cervical Cancer Screening: HPV 08/16/2026 08/16/2021 DTaP,Tdap,and Td Vaccines (10 - Td or Tdap) 01/15/2027 01/15/2017, 11/03/2016, 04/18/2007, Additional history exists RSV Immunization Adult Patients (1 - 1-dose 75+ series) 01/10/2059 IPV Vaccines Completed 06/06/1989, 09/1987, 04/04/1985, Additional history exists MMR Vaccines Completed 07/13/1990, 01/13/1986 Hepatitis B Vaccines Completed 02/02/1998, 09/19/1997, 08/14/1997 Influenza Vaccine Completed 01/20/2025, , 01/06/2021, Additional history exists HIB Vaccines Aged Out No longer eligi [...] 5 Years) and At-Risk Patients (6 to 49 Years) Aged Out No longer eligible based on patient's age to complete this topic RSV Immunization Patients Under 20 months Aged Out No longer eligible based on patient's age to complete this topic Varicella Vaccines Aged Out No longer eligible based on patient's age to complete this topic Procedures Procedure Name Priority Date/Time Associated Diagnosis Comments MR ANKLE WO CONTRAST RIGHT Routine 02/06/2025 9:32 AM EDT Disorder of ligament of ankle, right EGD Routine 01/15/2025 1:50 PM EDT Dysphagia, unspecified type Gastroesophageal reflux disease without esophagitis TISSUE EXAM Routine 01/15/2025 1:48 PM EDT Dysphagia, unspecified type Gastroesophageal reflux disease without esophagitis POC PREGANCY, URINE NO CHARGE SCREENING MANUALLY RESULTED Routine 01/15/2025 12:38 PM EDT MG MAMMO DIGITAL DIAGNOSTIC W MARV RIGHT Routine 07/31/2024 9:59 AM EDT Abnormal mammogram HM HPV Routine 08/16/2021 LIPID PANEL Routine 06/11/2020 from Last 3 Months or Most Recently Relevant to Health Maintenance Results * MR Ankle wo Contrast Right (02/06/2025 9:32 AM EDT) Anatomical Region Laterality Modality Lower Extremities, Ankle Right Magneti c Resonance 02/10/2025 3:22 AM EDT Impressions 02/10/2025 3:34 AM EDT Insertional tearing and/or tendinosis of the peroneus brevis tendon with mild peroneal tenosynovitis and overlying subcutaneous soft tissue edema -------- FINAL REPORT -------- Dictated By: Barbara Mims Dictated Date: 02/10/2025 03:22 ET Assigned Physician: Barbara Mims Reviewed and Electronically Signed By: Barbara Mims Signed Date: 02/10/2025 03:34 ET Workstation ID: [id number] Transcribed By: Self Edit Transcribed Date: 02/10/2025 03:22 ET Narrative 02/10/2025 3:34 AM EDT INDICATION: ATFL tear versus peroneal tendinitis lateral ankle pain COMPARISON: None TECHNIQUE: Multiplanar, multisequence MRI was performed of the right ankle without intravenous contrast. FINDINGS: Bone: No acute fracture or dislocation. No abnormal bone marrow signal. No osteochondral lesion. Tendons: Attenuation of the insertional fibers of the peroneus brevis tendon which may represent tearing and/or tendinosis. Mild peroneal tenosynovitis with overlying subcutaneous soft tissue edema at this level. Anterior extensor tendons are intact. Posterior tibial tendinosis. Achilles tendon is intact. Ligaments:The deltoid ligaments, spring ligament complexes, and lateral collateral ligaments are intact. Miscellaneous:Mild thickening of the plantar fascia. Tarsal tunnel and sinus Tarsi appear unremarkable. Mild subcutaneous soft tissue edema along the lateral aspect of the right ankle. Right ankle joint fluid. No muscle atrophy or fatty infiltration. Procedure Note Barbara Mims MD - 02/10/2025 INDICATION: ATFL tear versus peroneal tendinitis lateral ankle pain COMPARISON: None TECHNIQUE: Multiplanar, multisequence MRI was performed of the right anklewithout intravenous contrast. FINDINGS: Bone: No acute fracture or dislocation. No abnormal bone marrow signal.No osteochondral lesion. Tendons: Attenuation of the insertional fibers of the peroneus brevistendon which may represent tearing and/or tendinosis. Mild peronealtenosynovitis with overlying subcutaneous soft tissue edema at this level.Anterior extensor tendons are intact. Posterior tibial tendinosis.Achilles tendon is intact. Ligaments:The deltoid ligaments, spring ligament complexes, and lateralcollateral ligaments are intact. Miscellaneous:Mild thickening of the plantar fascia. Tarsal tunnel andsinus Tarsi appear unremarkable. Mild subcutaneous soft tissue edemaalong the lateral aspect of the right ankle. Right ankle joint fluid. Nomuscle atrophy or fatty infiltration. IMPRESSION: Insertional tearing and/or tendinosis of the peroneus brevis tendon withmild peroneal tenosynovitis and overlying subcutaneous soft tissue edema -------- FINAL REPORT -------- Dictated By: Barbara Mims Dictated Date: 02/10/2025 03:22 ET Assigned Physician: Barbara Mims Reviewed and Electronically Signed By: Barbara Mims Signed Date: 02/10/2025 03:34 ET Workstation ID: [id number] Transcribed By: Self Edit Transcribed Date: 02/10/2025 03:22 ET Manuel Muñoz DP IMG MRI PROCEDURES Final Re sult * EGD Anesthesia - MAC; [facility] ENDOSCOPY (01/15/2025 1:50 PM EDT) Anatomical Region Laterality Modality Endoscopy 01/15/2025 1:37 PM EDT Impressions 01/15/2025 1:51 PM EDT - Normal examined duodenum. - Normal stomach. - Extrinsic compression in the middle third of the esophagus. - No specimens collected. Recommendation: - Discharge patient to home. - Return to referring physician as previously scheduled. Narrative 01/15/2025 1:51 PM EDT [facility] GI Patient Name: Venkata Mendiola Procedure Date: 01/15/2025 1:37 PM Date of : 1985 Age: 40 Gender: Female Note Status: Finalized Attending MD: Saturnino Villalobos MD, Procedure Date No Time: 01/15/2025 Procedure: Upper GI endoscopy Indications: Dysphagia Providers: Saturnino Villalobos MD Referring MD: Saturnino Villalobos MD Medicines: Monitored Anesthesia Care Complications: No immediate complications. Estimated blood loss: None. Estimated Blood Loss: Estimated blood loss: none. Procedure: Pre-Anesthesia Assessment: - Prior to the procedure, a History and Physical was performed, and patient medications and allergies were reviewed. The patient is competent. The risks and benefits of the procedure and the sedation options and risks were discussed with the patient. All questions were answered and informed consent was obtained. Patient identification and proposed procedure were verified by the physician, the nurse, the chief crew scheduler and the ordnance engineering technician in the pre-procedure area in the endoscopy suite. Mental Status Examination: alert and oriented. Airway Examination: normal oropharyngeal airway and neck mobility. Respiratory Examination: clear to auscultation. CV Examination: normal. Prophylactic Antibiotics: The patient does not require prophylactic antibiotics. Prior Anticoagulants: The patient has taken no anticoagulant or antiplatelet agents. ASA Grade Assessment: III - A patient with severe systemic disease. After reviewing the risks and benefits, the patient was deemed in satisfactory condition to undergo the procedure. The anesthesia plan was to use monitored anesthesia care (MAC). Immediately prior to administration of medications, the patient was re-assessed for adequacy to receive sedatives. The heart rate, respiratory rate, oxygen saturations, blood pressure, adequacy of pulmonary ventilation, and response to care were monitored throughout the procedure. The physical status of the patient was re-assessed after the procedure. After obtaining informed consent, the endoscope was passed under direct vision. Throughout the procedure, the patient's blood pressure, pulse, and oxygen saturations were monitored continuously. The Olympus Gastroscope was introduced through the mouth, and advanced to the second part of duodenum. The upper GI endoscopy was accomplished without difficulty. The patient tolerated the procedure well. Findings: The examined duodenum was normal. The stomach was normal. A small area of extrinsic compression was found in the middle third of the esophagus. No other significant abnormalities were identified in a careful examination of the esophagus. Procedure Code(s): --- Professional --- 74076, Esophagogastroduodenoscopy, flexible, transoral; diagnostic, including collection of specimen(s) by brushing or washing, when performed (separate procedure) Diagnosis Code(s): --- Professional --- K22.2, Esophageal obstruction R13.10, Dysphagia, unspecified CPT copyright 2020 [employer]. All rights reserved. The codes documented in this report are preliminary and upon yield clerk review may be revised to meet current compliance requirements. Saturnino Villalobos MD 01/15/2025 1:51:36 PM This report has been signed electronically.Saturnino Villalobos MD Number of Addenda: 0 Note Initiated On: 01/15/2025 1:37 PM Scope In: Scope Out: Endoscopy Department at [facility] - [address] [place] [phone] Procedure Note Saturnino Villalobos MD - 01/15/2025 [facility] GI Patient Name: Venkata Mendiola Procedure Date: 01/15/2025 1:37 PM Date of : 1985 Age: 40 Gender: Female Note Status: Finalized Attending MD: Saturnino Villalobos MD, Procedure Date No Time: 01/15/2025 Procedure: Upper GI endoscopy Indications: Dysphagia Providers: Saturnino Villalobos MD Referring MD: Saturnino Villalobos MD Medicines: Monitored Anesthesia Care Complications: No immediate complications. Estimated blood loss:None. Estimated Blood Loss: Estimated blood loss: none. Procedure: Pre-Anesthesia Assessment: - Prior to the procedure, a History and Physicalwas performed, and patient medications and allergieswere reviewed. The patient is competent. The risks and benefits of the procedure and the sedation optionsand risks were discussed with the patient. Allquestions were answered and informed consent was obtained. Patient identification and proposed procedure were verified by the physician, the nurse, theanesthetist and the ordnance engineering technician in the pre-procedure area in the endoscopy suite. Mental Status Examination: alertand oriented. Airway Examination: normal oropharyngeal airway and neck mobility. Respiratory Examination: clear to auscultation. CV Examination: normal. Prophylactic Antibiotics: The patient does notrequire prophylactic antibiotics. Prior Anticoagulants: The patient has taken no anticoagulant or antiplatelet agents. ASA Grade Assessment: III - A patient with severe systemic disease. After reviewing the risksand benefits, the patient was deemed in satisfactory condition to undergo the procedure. The anesthesia plan was to use monitored anesthesia care (MAC). Immediately prior to administration of medications, the patient was re-assessed for adequacy to receive sedatives. The heart rate, respiratory rate, oxygen saturations, blood pressure, adequacy of pulmonary ventilation, and response to care were monitored throughout the procedure. The physical status ofthe patient was re-assessed after the procedure. After obtaining informed consent, the endoscope was passed under direct vision. Throughout theprocedure, the patient's blood pressure, pulse, and oxygen saturations were monitored continuously. TheOlympus Gastroscope was introduced through the mouth, and advanced to the second part of duodenum. The upperGI endoscopy was accomplished without difficulty. The patient tolerated the procedure well. Findings: The examined duodenum was normal. The stomach was normal. A small area of extrinsic compression was found inthe middle third of the esophagus. No other significant abnormalities were identifiedin a careful examination of the esophagus. Procedure Code(s): --- Professional --- 66587, Esophagogastroduodenoscopy, flexible, transoral; diagnostic, including collection of specimen(s) by brushing or washing, when performed (separate procedure) Diagnosis Code(s): --- Professional --- K22.2, Esophageal obstruction R13.10, Dysphagia, unspecified CPT copyright 2020 [employer]. All rights reserved. The codes documented in this report are preliminary and upon yield clerk reviewmay be revised to meet current compliance requirements. Saturnino Villalobos MD 01/15/2025 1:51:36 PM This report has been signed electronically.Saturnino Villalobos MD Number of Addenda: 0 Note Initiated On: 01/15/2025 1:37 PM Scope In: Scope Out: Endoscopy Department at [facility] - [address] [place] [phone] IMPRESSION: - Normal examined duodenum. - Normal stomach. - Extrinsic compression in the middle third of the esophagus. - No specimens collected. Recommendation: - Discharge patient to home. - Return to referring physician as previously scheduled. us Saturnino Villalobos MD GI~PROCEDURE ORDERABLES Fin al Result * Tissue exam (01/15/2025 1:48 PM EDT) Addendum Immunohistochemistry : Helicobacter pylori: negative. 7:44 AM EDT [facility] Addendum electronically signed by Chelsea Cobian MD on 01/17/2025 at 0744 EDT Final Diagnosis A. Stomach, biopsies: - Gastric antral and oxyntic mucosa with mild chronic gastritis. Note: Immunostain for Helicobacter pylori will be performed to rule out Helicobacter pylori infection in the setting of chronic gastritis as Helicobacter pylori organisms are not morphologically apparent on H&E stained slide. 7:44 AM EDT [facility] at 1133 EDT Gross Description A. Stomach, biopsies: Labeled biopsies stomach . Received in formalin are four soft, lott-pink to red tissue fragments ranging from 0.15 cm to 0.4 cm in greatest diameter, which are wrapped in paper and submitted in toto in one cassette, four pieces, multiple levels. TS 7:44 AM EDT [facility] Disclaimer NOTE: The immunohistochemical tests and in situ hybridization tests were developed and their performance characteristics were determined by [facility]. They have not been cleared or approved by the U.S. Food and Drug Administration. The FDA has determined that such clearance or approval is not necessary. These tests are used for clinical purposes. They should not be regarded as investigational or for research. This laboratory is certified under the Clinical Laboratory Improvement Amendments of 1988 (CLIA) as qualified to perform high complexity clinical laboratory testing. (controls appropriate) Unless otherwise specified, all tissue is 10% NB formalin fixed and paraffin embedded. 7:44 AM EDT [facility] Tissue Stomach structure / Unknown 01/15/2025 1:48 PM EDT 01/15/2025 3:07 PM EDT Saturnino Villalobos MD LAB PATHOLOGY ORDERABLES Ed ited Result - Final [facility] [address] [place] [address], * POC , urine NO CHARGE screening manually resulted (01/15/2025 12:38 PM EDT) HCG, Ur POC Negative Negative POC hCG Int QC Pass? Yes Yes Urine Urine specimen obtained by clean catch procedure / Unknown 01/15/2025 12:38 PM EDT us Azar Jimenez DO POINT OF CARE TEST ENTER/EDIT O RDERABLES Final Result * MG Mammo Digital Diagnostic w Marv [...] is recommended in 1 year. Mammo Location: [facility], [address] [place] [address], [id number], . -------- FINAL REPORT -------- Dictated By: Yasmeen Lai Dictated Date: 07/31/2024 10:05 ET Assigned Physician: Yasmeen Lai Reviewed and Electronically Signed By: Yasmeen Lai Signed Date: 07/31/2024 10:13 ET Workstation ID: [id number] Transcribed By: Self Edit Transcribed Date: 07/31/2024 [...] Unilateral right digital diagnostic mammography is obtained andrevick in conjunction with computer-aided detection. Tomosynthesis as [...] is recommended in 1 year. Mammo Location: [facility], [address] [place] [address], [id number], . -------- FINAL REPORT -------- Dictated By: Yasmeen Lai Dictated Date: 07/31/2024 10:05 ET Assigned Physician: Yasmeen Lai Reviewed and Electronically Signed By: Yasmeen Lai Signed Date: 07/31/2024 10:13 ET Workstation ID: [id number] Transcribed By: Self Edit Transcribed Date: 07/31/2024 10:06 ET Ying Gonzales CNM IMG BI PROCEDURES Final Res ult * Cervical Cancer Screening: HPV (08/16/2021) Pathologist [facility] Cervical Cancer Screening: HPV abstracted, negative Historical Provider HEALTH MAINTENANCE Final Result * (ABNORMAL) Lipid panel (06/11/2020) LDL/HDL Ratio 3 0 - 4 Triglycerides 75 0 - 150 mg/dL Cholesterol 174 0 - 200 mg/dL HDL 54 >=40 mg/dL LDL Cholesterol 105(A) 0 - 100 mg/dL Blood Venous blood specimen / Unknown Historical Provider LAB BLOOD ORDERABLES Lorraine l Result from Last 3 Months or Most Recently Relevant to Health Maintenance Insurance [facility] [facility] Care Teams Radio Rigger Relationship Specialty Start Date End Date Fadia Ramos MD [address] [place] [phone] PCP - General Internal Medicine 02/14/22
--- OUTSIDE RECORDS SUMMARY | 2025-02-19 08:51 | XMS_ITS ---
Author Name [facility] Organization Unknown History of Medication Use Medication Directions Dispensed Refills Start Date End Date Stat us topIRAMATE (TOPAMAX) 25 MG tablet Take 25 mg by mouth 2 (two) times daily for 90 days 01/01/2024 active PANTOprazole (PROTONIX) 40 MG tablet Take 1 Tablet by mouth daily. Take in am on empty stomach, wait 30 mins and then eat to activate the medication 07/20/2023 active barium (E-Z-PAQUE) 96 % (w/w) suspension 130 mL 130 mL, Oral, Once, On Mon05/22/23 at 1015, For 1 dose, Radiology 05/22/2023 05/22/2023 completed tolterodine (DETROL LA) 4 MG 24 hr capsule Take 4 mg by mouth daily 03/16/2023 active fluticasone propionate (FLONASE) 50 mcg/actuation nasal spray SPRAY 2 SPRAYS IN EACH NOSTRIL ONCE PER DAY FOR 2 WEEKS. 08/01/2022 active fluticasone propionate (FLONASE) 50 mcg/actuation nasal spray SPRAY 2 SPRAYS IN EACH NOSTRIL ONCE PER DAY FOR 2 WEEKS. 08/01/2022 active famotidine (PEPCID) 20 MG tablet Take 40 mg by mouth 2 (two) times daily 09/18/2021 03/18/2022 active famotidine (PEPCID) 10 MG tablet Take by mouth 09/09/2021 active famotidine (PEPCID) 10 MG tablet Take 10 mg by mouth daily 09/09/2021 active famotidine (PEPCID) 10 MG tablet Take 20 mg by mouth daily 09/09/2021 active naratriptan (AMERGE) 2.5 MG tablet Take 2.5 mg by mouth as needed 03/09/2021 active naratriptan (AMERGE) 2.5 MG tablet Take 2.5 mg by mouth as needed 03/09/2021 active naratriptan (AMERGE) 2.5 MG tablet Take 2.5 mg by mouth as needed 03/09/2021 active promethazine (PHENERGAN) 25 MG tablet Take 25 mg by mouth every 8 (eight) hours as needed 01/06/2021 active promethazine (PHENERGAN) 25 MG tablet Take 25 mg by mouth every 8 (eight) hours as needed 01/06/2021 active promethazine (PHENERGAN) 25 MG tablet Take 25 mg by mouth every 8 (eight) hours as needed 01/06/2021 active ondansetron (ZOFRAN) 8 MG tablet 8 mg every 8 (eight) hours as needed active ondansetron (ZOFRAN) 8 MG tablet 8 mg every 8 (eight) hours as needed active ondansetron (ZOFRAN) 8 MG tablet 8 mg every 8 (eight) hours as needed active Allergies Allergen Reaction Severity Comment Documented Date Source Statu s AMITRIPTYLINE OTHER (SEE COMMENTS) Other reaction(s): headaches 09/28/2021 [facility] active ZOLMITRIPTAN OTHER (SEE COMMENTS) Dizziness and nausea 11/11/2009 [facility] active SUMATRIPTAN OTHER (SEE COMMENTS) Injection 07/18/2007 [facility] active MORPHINE SHORTNESS OF BREATH 07/02/2007 [facility] active Problems Problem Status Onset Date Problem Type Date of Resoluti on Source Dysphagia, unspecified type active 2021-09-28 ProblemAct [facility] Right aortic arch active 2021-09-28 ProblemAct [facility] 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 ProblemAct [facility] Other dysphagia active 2021-09-28 ProblemAct [facility] Congenital heart anomaly active 2021-09-28 ProblemAct [facility] Encounters Encounter Type Encounter Reason Primary Diagnosis Location Date Ambulatory Other dysphagia Other dysphagia [facility] ([facility] 04/18/2024 Ambulatory Double aortic arch Double aortic arch [facility] ([facility] 05/22/2023 Ambulatory Double aortic arch Double aortic arch [facility] ([facility] 04/06/2023 Ambulatory Other dysphagia Other dysphagia [facility] ([facility] 04/06/2023 Ambulatory Double aortic arch Double aortic arch [facility] ([facility] 11/28/2022 Ambulatory [facility] 10/13/2022 Ambulatory [facility] 04/04/2022 Ambulatory [email or web address] 10/02/2021 Ambulatory [facility] 10/02/2021 Care Team Organization Name Specialty Phone Email Start Date End Da te [facility] ([facility] Fadia Arcos Primary Care 04/18/2024 [facility] ([facility] REFERRED SELF Primary Care 04/06/20232022 [facility] Fadia Arcos Primary Care 03/29/2023 12/04/2023 [facility] Self,Referred Primary Care 11/28/2022 [facility] Self,Referred Primary Care 10/13/2022 [facility] Barbara Ferrara Primary Care 02/22/20222023 [facility] Self,Referred Primary Care 10/06/2021 [facility] 10/02/2021 10/02/2021 [facility] 10/02/2021
--- OUTSIDE RECORDS SUMMARY | 2025-02-19 08:51 | XMS_ITS | Clinical Summary ---
Author Organization [facility] Address [address] [place] [address] Care Team Providers Care Insurance Claims Clerk Name Role Phone Unavailable Primary Care Provider [...] 3-dose series) 01/10/2003 COVID-19 Vaccine ( - 2024-2 6 season) 2024 09/18/2020, 08/28/2020 HPV Vaccines (No Doses Required) Completed Pneumococcal Vaccine: Pediatric (0-5 Years) and At-Risk Patients (6 to 49 Years) Aged Out No longer eligible b ased on patient's age to complete this topic
--- OUTSIDE RECORDS SUMMARY | 2025-02-19 08:52 | XMS_ITS | Clinical Summary ---
Author Organization [facility] Address [address] [place] [address] Phone Care Team Providers Care Clay Hoister Name Role Phone Fadia Arcos Unavailable [phone] Fadia Arcos Primary Care Provider [phone] Allergies No known active allergies Medications albuterol HFA 90 mcg/act inhalerIndicati ons:Double aortic arch Inhale 2 puffs every 4 hours if needed for shortness of breath (Take two puffs before walking or physical activity up to 6 times per day). 18 g 11 09/25/19 26 Active Encounters Date Type Department Care Team Description 11/29/2024 Abstract [facility] Cardiology Scheduling [address] [place] [id number] Jerson Elaine MD from Last 3 Months Social History Tobacco Use Types Packs/Day Years Used Date Smoking Tobacco: Never Assessed Comments Unknown Sex and Gender Information Value Date Recorded Sex Assigned at Not on file Legal Sex Female 10:53 AM EDT Gender Identity Female 07/02/2024 3:21 PM EDT Sexual Orientation Not on file Last Filed Vital Signs Vital Sign Reading Time Taken Comments Blood Pressure 131/88 09/24/2024 2:32 PM EDT Pulse 71 09/24/2024 2:32 PM EDT Temperature - - Respiratory Rate - - Oxygen Saturation 98% 09/24/2024 2:32 PM EDT Inhaled Oxygen Concentration - - Weight 92.1 kg (203 lb 0.7 oz) 09/24/2024 2:32 P M EDT Height 161.7 cm (5' 3.66 ) 09/24/2024 2:32 PM ED T Body Mass Index 35.22 09/24/2024 2:32 PM EDT Plan of Treatment Health Maintenance Due Date Last Done Comments Chlamydia and Gonorrhea Screening 1984 HIV Screening 1984 Anemia Screening 1996 Varicella Vaccines (1 of 2 - 13+ 2-dose series) 01/10/1997 Hepatitis C Screening 01/10/2002 Pneumococcal Vaccine: Pediatrics (0 to 5 Years) and At-Risk Patients (6 to 49 Years) (1 of 2 - PCV) 01/10/2003 Influenza Vaccine (#1) 2024 , 01/06/2021, 02/03/2017, Additional history exists DTaP/Tdap/Td Vaccines (8 - Td or Tdap) 01/15/2027 01/15/2017, 11/03/2016, 04/18/2007, Additional history exists IPV Vaccines Completed 06/06/1989, 09/1987, 04/04/1985, Additional history exists MMR Vaccines Completed 07/13/1990, 01/13/1986 Hepatitis B Vaccines Completed 02/02/1998, 09/19/1997, 08/14/1997 HIB Vaccines Aged Out No longer eligi ble based on patient's age to complete this topic HPV Vaccines (No Doses Required) Completed Hepatitis A Vaccines Aged Out No long er eligible based on patient's age to complete this topic Meningococcal B Vaccine Aged Out No l onger eligible based on patient's age to complete this topic Meningococcal Vaccine Aged Out No lul malena eligible based on patient's age to complete this topic Rotavirus Vaccines Aged Out No longer eligible based on patient's age to complete this topic Insurance [facility] Care Teams Clay Hoister Relationship Specialty Start Date End Date Fadia Arcos [address] [place] [address] PCP - Insurance Identified PCP 07/05/24 Fadia Arcos [address] [place] [address] PCP - General 09/17/24
--- OUTSIDE RECORDS SUMMARY | 2025-02-19 08:52 | XMS_ITS | Clinical Summary ---
Author Organization [facility] Address [address] [place] [address] Phone Care Team Providers Care Tick Eradicator Name Role Phone Unavailable Primary Care Provider [...] of 2 - 13+ 2-dose series) 01/10/1997 HPV Vaccines (1 - 3-dose SCDM series) 01/10/2011 Influenza Vaccines (#1) 2024 01/07/20 21, 02/03/2017, 12/22/2011, Additional history exists COVID-19 Vaccine ( - 2024- season) 2024 09/18/2020, 08/28/2020 DTaP,Tdap,and Td Vaccines (8 - Td or Tdap) 01/15/2027 01/15/2017, 11/03/2016, 04/18/2007, Additional history exists IPV Vaccines Completed 06/06/1989, 0 09/1987, 04/04/1985, Additional history exists MMR Vaccines [...]
--- OUTSIDE RECORDS SUMMARY | 2025-02-19 08:52 | XMS_ITS | Clinical Summary ---
Author Organization [facility] Address [address] [place] [id number] Care Team Providers Care Machine Shop Helper Name Role Phone Fadia Méndez MD Primary Care Provider Source Comments Please note that some or all of the patient's information could have additional privacy protections. State laws allow health care providers to render certain types of treatment to minors without parental consent. Please do not assume that this information can be shared solely by obtaining just the consent of the patient's parent/guardian. Please determine if all or part of the patient's care was rendered without parent/guardian involvement. And, if so, obtain the minor's consent prior to disclosure.[facility] Allergies Active Allergy Reactions Criticality Noted Date Comments Amitriptyline Other (See Comments) 09/28/2021 Other reaction(s): headaches Morphine Hives,Rash,Itching,S hort ness Of Breath High 07/02/2007 Sumatriptan Other (See Comments) 07/18/2007 Injection Zolmitriptan Other (See Comments) 11/11/2009 Dizziness and nausea Medications ondansetron (ZOFRAN) 8 MG tablet 8 mg every 8 (eight) hours as needed Active famotidine (PEPCID) 10 MG tablet Take 20 mg by mouth daily 2 Active naratriptan (AMERGE) 2.5 MG tablet Take 2.5 mg by mouth as needed 1 Active promethazine (PHENERGAN) 25 MG tablet Take 25 mg by mouth every 8 (eight) hours as needed 1 Active fluticasone propionate (FLONASE) 50 mcg/actuation nasal spray SPRAY 2 SPRAYS IN EACH NOSTRIL ONCE PER DAY FOR 2 WEEKS. 3 Active tolterodine (DETROL LA) 4 MG 24 hr capsule Take 4 mg by mouth daily 3 Active PANTOprazole (PROTONIX) 40 MG tablet Take 1 Tablet by mouth daily. Take in am on empty stomach, wait 30 mins and then eat to activate the medication 4 Active topIRAMATE (TOPAMAX) 25 MG tablet Take 25 mg by mouth 2 (two) times daily for 90 days 4 Active Active Problems Problem Noted Date Diagnosed Date Congenital heart anomaly 09/28/2021 Right aortic arch 09/28/2021 Double aortic arch 09/28/2021 Other dysphagia 09/28/2021 Family History Medical History Relation Name Comments Arrhythmia Neg Hx Cardiomyopathy Neg Hx Congenital heart disease Neg Hx Sudden Cardiac Neg Hx Sudden Neg Hx Social History Tobacco Use Types Packs/Day Years Used Date Smoking Tobacco: Never Smokeless Tobacco: Never Tobacco Cessation:Counseling Given: Not Answered Alcohol Use Standard Drinks/Week Comments Never 0 (1 standard drink = 0.6 oz pur e alcohol) Comments Unknown Sex and Gender Information Value Date Recorded Sex Assigned at Not on file Legal Sex Female 1:57 PM EDT Gender Identity Not on file Sexual Orientation Not on file Last Filed Vital Signs Vital Sign Reading Time Taken Comments Blood Pressure 112/80 04/18/2024 9:45 AM EST Pulse 64 04/18/2024 9:45 AM EST Temperature - - Respiratory Rate - - Oxygen Saturation 100% 04/18/2024 9:45 AM EST Inhaled Oxygen Concentration - - Weight 96.3 kg (212 lb 4.9 oz) 04/18/2024 9:45 A M EST Height 162 cm (5' 3.78 ) 04/18/2024 9:45 AM EST Body Mass Index 36.69 04/18/2024 9:45 AM EST Plan of Treatment Health Maintenance Due Date Last Done Comments DTaP/TDAP/TD VACCINES (1 - Tdap) 01/10/1991 ADOLESCENT HIV SCREENING 01/10/1997 COVID-19 Vaccine ( season) 2024 09/18/2020, 08/28/2020 INFLUENZA (#1) 2024 NIRSEVIMAB VACCINES UNDER 8 MONTHS Aged Out No longer eligible b ased on patient's age to complete this topic Insurance [facility] [employer] Care Teams Machine Shop Helper Relationship Specialty Start Date End Date Fadia Méndez MD [address] [place] [address] PCP - General 07/19/23
== END 2025-02-19 08:55 | disposition home or self-care (01) ==
LOC: HO.HSM 08:35
PROVIDERS: PCP Internal Medicine; Visit Provider Registered Nurse
DX: G43.009 Migraine without aura, not intractable, without status migrainosus (principal); I44.1 Atrioventricular block, second degree
CPT/HCPCS: 99214

== ENCOUNTER → 2025-02-19 08:34 | Outpatient (BNVA) | payer OTHER, SELFPAY | PROVIDERS: PCP Internal Medicine; Visit Provider Registered Nurse | DX: G43.009 Migraine without aura, not intractable, without status migrainosus (principal); I44.1 Atrioventricular block, second degree; Z79.899 Other long term (current) drug therapy | CPT/HCPCS: 99212 ==

== ENCOUNTER 2025-04-11 08:34 | Outpatient (AMB) | payer OTHER, SELFPAY ==
--- NOTE | 2025-04-11 08:35 | A.OFFVIS_ITS ---
Intake Visit Reasons: 6 WEEKS Allergies morphine (Morphine) Allergy (Unknown, Verified 02/19/25 08:38) RASH, Chest pain,rash, itchy sumatriptan (Imitrex) Allergy (Unknown, Verified 02/19/25 08:38) Migraines get worse zolmitriptan (From ZOMIG) Adverse Reaction (Unknown, Verified 02/19/25 08:38) HEADACHES Medication List - Last Reconciled 04/11/25 by Jessica Amaya CNP nwjbozyaix-fcmolnpvmhaiv-lokf 50-325-40 mg 1 tab PO DAILY 30 days esomeprazole magnesium 40 mg PO QAM ibuprofen 600 mg PO QID PRN mirabegron ER (Myrbetriq) 25 mg PO DAILY ondansetron 4 mg PO DAILY PRN 30 days topiramate 50 mg orally 1 tablet in the morning and 2 tablets at bedtime; 90 days HPI Comments Details: 40-year-old RH woman with headaches since she was a teenager, and cardiac history s/p surgical repair as an following with information systems security officer in [place], 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 She previously worked in [employer] for the last 10 years. Migraines seemed to be better with increased dose of topiramate. She had 3 migraines total since her last appointment in early 02/2025. She tried butalabital 1 tablet as needed without much relief. She was reporting some ringing in her head and popping in her ears off and on for the last weeks that could happen with and without the headaches. No significant episodes of dizziness or nausea. No episodes of smelling smoke. Sleep was still not so good. Water Safety Instructor in [place] wanted to have few more tests done (including bronchoscopy, solid food esophagram, and vocal cord check by ENT). She was hoping to have testing done at [facility], but if she did not get appointment soon, she would need to go to [place]. [facility] Medical History (Updated 10/21/24 @ 09:58 by Jessica Amaya CNP) Paresthesia of skin Migraine without aura History of anemia Migraine Restless legs IBS (irritable bowel syndrome) Acid reflux Surgical History S/P laparoscopic cholecystectomy (06/09/21) History of heart surgery History of bilateral tubal ligation Family History (Updated 10/17/24 @ 17:26 by Ellen Neves MA) Paternal Aunt Breast cancer Paternal Grandfather Colon cancer Paternal Uncle Cancer of unknown origin Maternal Grandmother Kidney carcinoma Father Headache Mother Headache Son Headache Daughter Headache Social History Are you a primary cna caregiver to a significant other at home: No Do you presently have visiting nurse or other home services: No Alcohol intake: never Patient Tobacco Use Status: Never used Tobacco Review of Systems Const Denies chills, Denies daytime sleepiness, Reports difficulty sleeping, Denies fatigue, Denies fever(s), Denies frequent falls, Reports headache(s), Denies increased appetite, Denies poor appetite, Reports snoring, Denies weakness, Denies weight gain and Denies weight loss Eyes Denies loss of vision ENT Denies vertigo, Denies dizziness, Reports headache(s) and Reports tinnitus Card Denies chest pain at rest, Denies chest pain with activity, Denies leg edema and Reports palpitations Resp Reports snoring GI Denies constipation, Denies heartburn, Denies diarrhea and Reports nausea Denies urinary frequency, Denies urinary incontinence and Denies urinary urgency Musc Denies abnormal gait, Denies numbness and Denies tingling Skin/Breast Denies dry skin and Denies rash Neuro Denies abnormal gait, Denies vertigo, Denies dizziness, Denies frequent falls, Reports headache(s), Denies lack of coordination, Denies loss of vision, Denies memory loss, Denies numbness, Denies restless legs, Denies seizure-like activity, Denies tingling, Denies paresthesias, Denies tremor(s) and Denies weakness Psych Reports anxiety, Denies depression, Denies auditory hallucinations, Denies memory loss, Denies visual hallucinations and Denies suicidal ideation Endo Denies fatigue and Reports palpitations Physical Exam Const Other: General Appearance:? normal, in no acute distress. Skin:? no rashes, no significant birthmarks. Heart:? S1, S2 normal, no murmurs. Lungs:? clear anteriorly and posteriorly. Extremities:? no edema. Psych:? alert, oriented, cognitive function intact, cooperative with exam. Neuro Other: Mental Status:?Normal attention, orientation, memory and affect.? Cranial Nerves:?Pupils are equal, round and reactive to light. External occular muscles are intact. Visual almonte are full. Face is symmetrical. Facial sensations are normal. Tongue is midline. Palate elevates symmetrically. Shoulder shrugging is normal. Hearing to bedside conversation is normal. Sensory Exam:?....? Coordination:?No ataxia,?no titubation.? Gait Exam: Within normal limits. Cerebellar Signs:?Nouepe-wg-qidr is okay. Extrapyramidal System:?No tremor, rigidity with normal facial expressions.? Pronator Drift:?Not present.? Involuntary Movements:?No tremors seen.? Speech:?Normal.? Results Reviewed Results Reviewed: 48hr EEG at [facility] 10/15/2024: 1. No significant EEG abnormality 2. Intermittent second-degree heart block EEG in office in May 2023: Mild slowing with no evidence of seizure disorder. CT brain WO [place] [facility] in 2021: WNL CT brain WO at [facility] in 2011: WNL Assessment & Plan Assessment & Plan (1) Migraine without aura: Code(s): G43.009 - Migraine without aura, not intractable, without status migrainosus Category: Medical Qualifiers: Intractability: not intractable Status migrainosus presence: without status migrainosus Qualified Code(s): G43.009 - Migraine without aura, not intractable, without status migrainosus Plan: Continue topiramate 50mg 1 tablet in the morning 2 tablets at bedtime. Continue vzywhbrmfv-VRBG-tmih 5--325-40mg 1-2 tablets as needed for headache #10 for 30 days - she was advised to try 2 tablets at onset of migraine. Continue ondansetron 4mg 1 tablet as needed for nausea/vomiting. Start cetirizine 10mg 1 tablet daily, use/side effects reviewed. (2) Second degree heart block: Code(s): I44.1 - Atrioventricular block, second degree Category: Medical Plan: Following with information systems security officer in [place]. Plan Meds tried: Topiramate, sumatriptan (worsening migraines), zolmitriptan (worsening migraines), naratriptan (did not help), Qulipta (helped, but not covered by insurance), Ubrelvy (did not help) Medications: New cetirizine 10 mg PO DAILY 30 tabs 5RF 30 days Coding Level of Care Code Est Pt Level 4 (54005) Diagnoses Migraine without aura and without status migrainosus, not intractable G43.009 Intractability: not intractable Status migrainosus presence: without status migrainosus Second degree heart block I44.1
--- OUTSIDE RECORDS SUMMARY | 2025-04-11 08:36 | XMS_ITS | Clinical Summary ---
Author Organization [facility] Address [address] [place] [address] Phone Care Team Providers Care Service Parts Driver Name Role Phone Fadia Arcos Unavailable [phone] Fadia Arcos Primary Care Provider [phone] Allergies No known active allergies Medications albuterol HFA 90 mcg/act inhalerIndicati ons:Double aortic arch Inhale 2 puffs every 4 hours if needed for shortness of breath (Take two puffs before walking or physical activity up to 6 times per day). 18 g 11 5 09/25/19 26 Active Encounters Date Type Department Care Team Description 02/19/2025 Telephone [facility] Cardiology Scheduling [address] [place] [address] Jerson Elaine MD Non-urgent Clinical Request from Last 3 Months Social History Tobacco [...] Years) (1 of 2 - PCV) 01/10/2003 COVID-19 Vaccine (3 - season) 2024 09/18/2020, 08/28/2020 Influenza Vaccine (#1) 2024 , [...] patient's age to complete this topic Insurance [facility] Care Teams Service Parts Driver Relationship Specialty Start Date End Date Fadia Arcos [address] [place] [address] PCP - Insurance Identified PCP 07/05/24 Fadai Arcos [address] [place] [address] PCP - General 09/17/24
--- OUTSIDE RECORDS SUMMARY | 2025-04-11 08:36 | XMS_ITS | Encounter Summary ---
Author Organization [facility] Prior to 02/16/2024 Address [address] [place] [address] Care Team Providers Care Booster Assembler Name Role Phone Fadia Arcos MD Primary Care Prov ider Marina Mcguire MD Unavailable [phone] Margarita Quevedo PA-C Unavailable [phone] Antwon Camilo PA-C Unavailable [phone] Encounter Details Date Type Department Care Team Description 07/18/2023 Orders Only [facility] Neurosurgery [address] [phone] Antwon Camilo PA-C [address] [phone] Cervical spondylosis with radiculopathy Social History Tobacco Use Types Packs/Day Years [...] on file documented as of this encounter Procedures Procedure Name Priority Date/Time Associated Diagnosis Comments MRI OF CERVICAL SPINE NO CONTRAST Routine 07/17/2023 Cervical spondylosis with radiculopathy documented in this encounter Results * MRI OF CERVICAL SPINE NO CONTRAST (07/17/2023) Antwon Camilo PA-C MRI [facility] documented in this encounter Visit Diagnoses Diagnosis Cervical spondylosis with radiculopathy Cervical spondylosis with myelopathy documented in this encounter Care Teams Booster Assembler Relationship Specialty Start Date End Date Fadia Arcos MD [address] [place] [address] PCP - General Internal Medicine 02/14/22 Marina Mcguire MD [address] [address] Surgeon Neurosurgery 04/26/23 Margarita Quevedo PA-C [address] [address] Specialist Neurosurgery 04/26/23 Antwon Camilo PA-C 175 [facility] [address] [place] [address] Specialist Neurosurgery 04/26/23 documented as of this encounter
--- OUTSIDE RECORDS SUMMARY | 2025-04-11 08:36 | XMS_ITS | Encounter Summary ---
Author Organization [facility] Prior to 02/16/2024 Address [address] [place] [address] Care Team Providers Care Operations And Maintenance Supervisor Name Role Phone Fadia Arcos MD Primary Care Prov ider Marina Mcguire MD Unavailable [phone] Margarita Quevedo PA-C Unavailable Antwon Camilo PA-C Unavailable [phone] Encounter Details Date Type Department Care Team Description 07/14/2023 SC[facility] Neurosurgery [place] [address] [phone] Antwon Camilo PA-C [address] [address] Social History Tobacco Use Types Packs/Day Years [...] on filedocumented in this encounter Care Teams Operations And Maintenance Supervisor Relationship Specialty Start Date End Date Fadia Arcos MD [address] [place] [id number] PCP - General Internal Medicine 10/31/22 Marina Mcguire MD [address] [phone] Surgeon Neurosurgery 04/26/23 Margarita Quevedo PA-C [address] [address] Specialist Neurosurgery 04/26/23 Antwon Camilo PA-C [address] [address] Specialist Neurosurgery 04/26/23 documented as of this encounter
--- OUTSIDE RECORDS SUMMARY | 2025-04-11 08:36 | XMS_ITS | Encounter Summary ---
Author Organization [facility] Prior to 02/16/2024 Address [address] [place] [address] Care Team Providers Care Registered Dietitian Name Role Phone Alba Ojeda MD Primary Care Provider Fadia Gan MD Primary Care Prov ider Marina Mcguire MD Unavailable [phone] Margarita Quevedo PA-C Unavailable [phone] Antwon Camilo PA-C Unavailable [phone] Encounter Details Date Type Department Care Team Description 05/14/2021 Accounts Payable Professional Report Medical Records [address] [place] [address] Sandeep Holder MD Social History Tobacco Use Types Packs/Day Years Used Date Smoking Tobacco: Never Smokeless Tobacco: Never Alcohol Use Standard Drinks/Week Comments No 0 (1 standard drink = 0.6 oz pur e alcohol) Sex Assigned at Date Recorded Not on file Job Start Date Occupation Industry Not on file Not on file Not on file COVID-19 Exposure Response Date Recorded In the last month, have you been in contact with someone who was confirmed or suspected to have Coronavirus / COVID-19? No / Unsure 05/17/2021 9:56 AM EST documented as of this encounter Plan of Treatment Not on file documented as of this encounter Visit Diagnoses Not on filedocumented in this encounter Additional Health Concerns Infection Onset Date Last Indicated Resolved Time COVID-19 Comment:Patient reporting positive test 05/08/2023 05/09/2023 06/13/2023 11:08 AM EST documented as of this encounter Care Teams Registered Dietitian Relationship Specialty Start Date End Date Alba Ojeda MD PCP - General Internal Medicine 11/21/18 02/13/22 Fadia Arcos MD [address] [place] [address] PCP - General Internal Medicine 02/14/22 Marina Mcguire MD [address] [address] Surgeon Neurosurgery 04/26/23 Margarita Quevedo PA-C [address] [address] Specialist Neurosurgery 04/26/23 Antwon Camilo PA-C 175 [facility] [address] [place] [address] Specialist Neurosurgery 04/26/23 documented as of this encounter
--- OUTSIDE RECORDS SUMMARY | 2025-04-11 08:36 | XMS_ITS | Clinical Summary ---
Author Organization [facility] Address [address] [place] [address] Care Team Providers Care Supervisor Landscape Name Role Phone Unavailable Primary Care Provider [...]
--- OUTSIDE RECORDS SUMMARY | 2025-04-11 08:36 | XMS_ITS | Clinical Summary ---
Author Organization [facility] Address [address] [place] [address] Care Team Providers Care Operations Accountant Name Role Phone Fadia Méndez MD Primary [...] so, obtain the minor's consent prior to disclosure.[facility] Allergies Active Allergy Reactions Criticality Noted Date [...] patient's age to complete this topic Insurance [facility] [employer] Care Teams Operations Accountant Relationship Specialty Start Date End Date Fadia Méndez MD [address] [place] [address] PCP - General 07/19/23
--- OUTSIDE RECORDS SUMMARY | 2025-04-11 08:36 | XMS_ITS | Encounter Summary ---
Author Organization [facility] Address [address] [place] [address] Care Team Providers Care Supervisor Insulation Name Role Phone Fadia Ramos MD Primary Care Prov ider Encounter Details Date Type Department Care Team (Late st Contact Info) Description 03/10/2025 Results Follow-Up Adult Medicine [facility] [address] [place], [place] [phone] Diya Bell PA [address] [place], [place] Social History Tobacco Use Types Packs/Day Years Used Date Smoking Tobacco: Never Smokeless Tobacco: Never Alcohol Use Standard Drinks/Week Comments No 0 (1 standard drink = 0.6 oz pur e alcohol) Housing Instability Answer Date Recorde d Are you worried that in the next 2 months you may not have stable housing? No 03/07/2025 Food Access & Nutrition Answer Date Rec orded Do you have access to a vari ety of food including fruits and vegetables? Yes 03/07/2025 Health Literacy Answer Date Recorded How often do you need to hav e someone help you when you read instructions, pamphlets, or other written material from your doctor or pharmacy? Never 03/07/2025 Caregiver: How often do you need to have someone help you when you read instructions, pamphlets, or other written material from your doctor or pharmacy? Not on file 03/07/2025 Financial Risk Answer Date Recorded How hard is it for you to pa y for the very basics like food, housing, medical care, and air conditioning / heating? Not very hard 03/07/2025 Transportation Answer Date Recorded Has the lack of transportati on kept you from meetings, work, or from getting things needed for daily living? No Has the lack of transportati on kept you from medical appointments or from getting medications? No 03/07/2025 Social Isolation Answer Date Recorded How often do you feel lonely or isolated from th ose around you? Never 03/07/2025 Food Risk Answer Date Recorded Within the past 12 months we worried whether our food would run out before we got money to buy more. Never true 03/07/2025 Within the past 12 months th e food we bought just didn't last and we didn't have money to get more. Never true 03/07/2025 Dependent Care Answer Date Recorded Do you need help finding or paying for care for your loved ones. For example, child psychiatrist or elderly care for an older adult? No 03/07/2024 Education Answer Date Recorded Do you think completing more education or training, like finishing a GED, going to college, or learning a trade, would be helpful for you? N/A 03/07/2025 Employment and Income Answer Date Recor ded During the last four weeks, have you been actively looking for work? No 03/07/2025 Living Situation Answer Date Recorded What is your living situation? Unrecognized valu e 03/07/2025 Interpersonal Safety Answer Date Record ed Physical Abuse Unrecognized value 01/15/2025 Verbal Abuse Unrecognized value 01/15/2025 Comments No Sex and Gender Information Value Date Recorded Sex Assigned at Not on file Legal Sex Female 1:55 AM EST Gender Identity Not on file Sexual Orientation Not on file documented as of this encounter Plan of Treatment Upcoming Encounters Date Type Department Care Team ([facility] st Contact Info) Description 07/10/2025 11:10 AM EDT Office Visit Gastroenterology - [address] [facility] [address] [place] [phone] Caitlin Solomon PA [address] [facility] [address] [place] [address] 07/25/2025 11:10 AM EDT Appointment Radiology Department - [address] [phone] documented as of this encounter Visit Diagnoses Not on filedocumented in this encounter Additional Health Concerns Assessment Noted Time PHQ-9 Depression Total Score: 0 02/25/20 25 4:48 PM EST documented as of this encounter Care Teams Supervisor Insulation Relationship Specialty Start Date End Date Fadia Ramos MD [address] [place] [address] PCP - General Internal Medicine 02/14/22 documented as of this encounter
--- OUTSIDE RECORDS SUMMARY | 2025-04-11 08:36 | XMS_ITS | Encounter Summary ---
Author Organization [facility] Prior to 02/16/2024 Address [address] [place] [address] Care Team Providers Care Permaculture Designer Name Role Phone Name, Audi IVEY Primary Care Provider Unavailabl e Name, Audi IVEY Primary Care Provider Unavailabl e Yris Arreaga MD Primary Care Provider Un available Alba Ojeda MD Primary Care Provider Fadia Gan MD Primary Care Prov ider Marina Mcguire MD Unavailable [phone] Margarita Quevedo PA-C Unavailable [phone] Antwon Camilo PA-C Unavailable [phone] Encounter Details Date Type Department Care Team Description 11/07/2014 Telephone [address] [address] Brad Santana, [place] Social History Tobacco Use Types Packs/Day Years Used Date Smoking Tobacco: Never Smokeless Tobacco: Never Alcohol Use Standard Drinks/Week Comments No 0 (1 standard drink = 0.6 oz pur e alcohol) Sex Assigned at Date Recorded Not on file Job Start Date Occupation Industry Not on file Not on file Not on file documented as of this encounter Miscellaneous Notes * Telephone Encounter - Brad Santana OD - 11/07/2014 5:06 PM EDT Please call C and make sure the pt went the appt on 02/01/15 and document documented in this encounter Plan of Treatment Not on file documented as of this encounter Visit Diagnoses Not on filedocumented in this encounter Additional Health Concerns Infection Onset Date Last Indicated Resolved Time COVID-19 Comment:Patient reporting positive test 05/08/2023 05/09/2023 06/13/2023 11:08 AM EST documented as of this encounter Care Teams Permaculture Designer Relationship Specialty Start Date End Date Name, MD Audi PCP - General 06/29/07 06/08/15 [place], MD Audi PCP - General Internal Medicine 06/09/15 09/06/15 Yris Arreaga MD PCP - General Internal Medicine 09/07/15 Alba Segundo MD PCP - General Internal Medicine 11/21/18 02/13/22 Fadia Arcos MD [address] [place] [address] PCP - General Internal Medicine 02/14/22 Marina Mcguire MD [address] [address] Surgeon Neurosurgery 04/26/23 Margarita Quevedo PA-C [address] [address] Specialist Neurosurgery 04/26/23 Antwon Camilo PA-C [address] [address] Specialist Neurosurgery 04/26/23 documented as of this encounter
--- OUTSIDE RECORDS SUMMARY | 2025-04-11 08:36 | XMS_ITS | Encounter Summary ---
Author Organization [facility] Address [address] [place] [address] Care Team Providers Care Frame Stylist Name Role Phone Fadia Ramos MD Primary Care Prov ider Encounter Details Date Type Department Care Team (Late st Contact Info) Description 02/26/2025 Results Follow-Up Gastroenterology - [facility] [address] [facility] 175 [facility] [address] [place] [phone] Saturnino Villalobos MD 299 [facility] [address] [place] [address] Social History Tobacco Use Types Packs/Day Years [...] for your loved ones. For example, child caregiver or elderly care for an older adult? [...] on file documented as of this encounter Progress Notes * Saturnino Villalobos MD - 02/26/2025 9:30 PM EST The gastric biopsies taken during the endoscopy show mild inflammation which may have been caused by irritants. These irritants are such as gastric acid, bile, nonsteroidal medications example ibuprofen, Aleve, caffeine, nicotine or alcohol. Please try to avoid these irritants as much as possible. You may also use an bymb-svf-rhlahki acid reducing agent such as Zantac or Pepcid, Tums, omeprazole etc. when necessary. I would like to personally thank you for allowing us to take care of you. Please don't hesitate to call us for any questions or concerns. Regards, Maura Villalobos MD Board Certified Gastroenterology and Internal Medicine Transplant Hepatology [facility] documented in this encounter Plan of Treatment Upcoming Encounters Date Type Department Care Team (Late st Contact Info) Description 07/10/2025 11:10 AM EDT Office Visit Gastroenterology - [address] [phone] Caitlin Solomon PA [address] [address] 07/25/2025 11:10 AM EDT Appointment Radiology Department - [address] [phone] documented as of this encounter Visit Diagnoses Not on filedocumented in this encounter Additional Health Concerns Assessment Noted Time PHQ-9 Depression Total Score: 0 02/25/20 25 4:48 PM EST documented as of this encounter Care Teams Frame Stylist Relationship Specialty Start Date End Date Fadia Ramos MD [address] [place] [address] PCP - General Internal Medicine 02/14/22 documented as of this encounter
--- OUTSIDE RECORDS SUMMARY | 2025-04-11 08:37 | XMS_ITS | Encounter Summary ---
Author Organization [facility] Prior to 02/16/2024 Address [address] [place] [address] Care Team Providers Care Commercial Assistant Name Role Phone Fadia Arcos MD Primary Care Prov ider Marina Mcguire MD Unavailable [phone] Margarita Quevedo PA-C Unavailable [phone] Antwon Camilo PA-C Unavailable [phone] Reason for Visit * Reason Onset Date Comments Provider Call Back 04/06/2023 Encounter Details Date Type Department Care Team Description 04/06/2023 Telephone Gastroenterology - [address] [phone] Gonzales Talbot PA-C Provider Call Back Social History Tobacco Use Types Packs/Day Years [...] encounter Miscellaneous Notes * Telephone Encounter - Cynthia Sexton - 04/06/2023 1:35 PM EST Patient was placed on a waitlist. * Telephone Encounter - Margarita Swain - 04/06/2023 11:55 AM EST Patient calling stating she is having extremely bad heartburn. Scheduled her for July, she asked to see if she is able to be seen sooner as this is very hard to tolerate. Please advise documented in this encounter Plan of Treatment Not on file documented as of this encounter Visit Diagnoses Not on filedocumented in this encounter Additional Health Concerns Infection Onset Date Last Indicated Resolved Time COVID-19 Comment:Patient reporting positive test 05/08/2023 05/09/2023 06/13/2023 11:08 AM EST documented as of this encounter Care Teams Commercial Assistant Relationship Specialty Start Date End Date Fadia Arcos MD [address] [place] [address] PCP - General Internal Medicine 02/14/22 Marina Mcguire MD 175 [facility] [address] [place] [address] Surgeon Neurosurgery 04/26/23 Margarita Quevedo PA-C [address] [address] Specialist Neurosurgery 04/26/23 Antwon Camilo PA-C 175 [facility] [address] [place] [address] Specialist Neurosurgery 04/26/23 documented as of this encounter
--- OUTSIDE RECORDS SUMMARY | 2025-04-11 08:37 | XMS_ITS | Encounter Summary ---
Author Organization [facility] Prior to 02/16/2024 Address [address] [place] [address] Care Team Providers Care Full Fashioned Garment Knitter Name Role Phone Name, Audi IVEY Primary Care Provider Unavailabl e Name, Audi IVEY Primary Care Provider Unavailabl e Yris Arreaga MD Primary Care Provider Un available Alba Ojeda MD Primary Care Provider Fadia Gan MD Primary Care Prov ider Marina Mcguire MD Unavailable [phone] Margarita Quevedo PA-C Unavailable [phone] Antwon Camilo PA-C Unavailable [phone] Encounter Details Date Type Department Care Team Description 02/07/2014 Superintendent Institution Report Medical Records [address] [place] [address] Social History Tobacco Use Types Packs/Day Years [...] documented as of this encounter Care Teams Full Fashioned Garment Knitter Relationship Specialty Start Date End Date Name, MD Audi PCP - General 06/29/07 06/08/15 [place], MD Audi PCP - General Internal Medicine 06/09/15 09/06/15 Yris Arreaga MD PCP - General Internal Medicine 09/07/15 Alba Segundo MD PCP - General Internal Medicine 11/21/18 02/13/22 Fadia Arcos MD [address] [place] [address] PCP - General Internal Medicine 02/14/22 Marina Mcguire MD [address] [address] Surgeon Neurosurgery 04/26/23 Margarita Quevedo PA-C [address] [address] Specialist Neurosurgery 04/26/23 Antwon Camilo PA-C 175 [facility] [address] [place] [address] Specialist Neurosurgery 04/26/23 documented as of this encounter
--- OUTSIDE RECORDS SUMMARY | 2025-04-11 08:37 | XMS_ITS | Encounter Summary ---
Author Organization [facility] Prior to 02/16/2024 Address [address] [place] [address] Care Team Providers Care Grain Oilseed Or Pasture Grower Name Role Phone Name, Audi IVEY Primary Care Provider Unavailabl e [place], Audi IVEY Primary Care Provider Unavailabl e Yris Arreaga MD Primary Care Provider Un available Alba Ojeda MD Primary Care Provider Fadia Gan MD Primary Care Prov ider Marina Mcguire MD Unavailable [phone] Margarita Quevedo PA-C Unavailable [phone] Antwon Camilo PA-C Unavailable [phone] Encounter Details Date Type Department Care Team Description 12/26/2011 Telephone Adult [address] [address] Name, MD Audi Social History Tobacco Use Types Packs/Day Years [...] documented as of this encounter Care Teams Grain Oilseed Or Pasture Grower Relationship Specialty Start Date End Date Name, MD Audi PCP - General 06/29/07 06/08/15 Name, MD Audi PCP - General Internal Medicine 06/09/15 09/06/15 Yris Arreaga MD PCP - General Internal Medicine 09/07/15 Alba Segundo MD PCP - General Internal Medicine 11/21/18 02/13/22 Fadia Arcos MD [address] [place] [address] PCP - General Internal Medicine 02/14/22 Marina Mcguire MD [address] [address] Surgeon Neurosurgery 04/26/23 Margarita Quevedo PA-C [address] [address] Specialist Neurosurgery 04/26/23 Antwon Camilo PA-C 175 [facility] [address] [place] [address] Specialist Neurosurgery 04/26/23 documented as of this encounter
--- OUTSIDE RECORDS SUMMARY | 2025-04-11 08:37 | XMS_ITS | Clinical Summary ---
Author Organization [facility] Address [address] [place] [address] Phone Care Team Providers Care Ribbing Machine Operator Name Role Phone Unavailable Primary [...]
--- OUTSIDE RECORDS SUMMARY | 2025-04-11 08:37 | XMS_ITS | Encounter Summary ---
Author Organization [facility] Prior to 02/16/2024 Address [address] [place] [address] Care Team Providers Care Bander Hand Name Role Phone Alba Ojeda MD Primary Care Provider Fadia Gan MD Primary Care Prov ider Marina Mcguire MD Unavailable [phone] Margarita Quevedo PA-C Unavailable [phone] Antwon Camilo PA-C Unavailable [phone] Encounter Details Date Type Department Care Team Description 09/09/2021 [facility] Report Medical Records [address] [place] [address] Avery Flor MD Social History Tobacco Use Types Packs/Day Years Used Date Smoking Tobacco: Never Smokeless Tobacco: Never Alcohol Use Standard Drinks/Week Comments No 0 (1 standard drink = 0.6 oz pur e alcohol) Sex Assigned at Date Recorded Not on file Job Start Date Occupation Industry Not on file Not on file Not on file COVID-19 Exposure Response Date Recorded In the last 10 days, have yo u been in contact with someone who was confirmed or suspected to have Coronavirus/COVID-19? No / Unsure 08/27/2021 9:06 AM EDT documented as of this encounter Plan of Treatment Not on file documented as of this encounter Visit Diagnoses Not on filedocumented in this encounter Additional Health Concerns Infection Onset Date Last Indicated Resolved Time COVID-19 Comment:Patient reporting positive test 05/08/2023 05/09/2023 06/13/2023 11:08 AM EST documented as of this encounter Care Teams Bander Hand Relationship Specialty Start Date End Date Alba Ojeda MD PCP - General Internal Medicine 11/21/18 02/13/22 Fadia Arcos MD [address] [place] [address] PCP - General Internal Medicine 02/14/22 Marina Mcguire MD [address] [address] Surgeon Neurosurgery 04/26/23 Margarita Quevedo PA-C [address] [address] Specialist Neurosurgery 04/26/23 Antwon Camilo PA-C [address] [address] Specialist Neurosurgery 04/26/23 documented as of this encounter
--- OUTSIDE RECORDS SUMMARY | 2025-04-11 08:37 | XMS_ITS | Encounter Summary ---
Author Organization [facility] Prior to 02/16/2024 Address [address] [place] [address] Care Team Providers Care Ceramic Research Engineer Name Role Phone Yris Arreaga MD Primary Care Provider Un available Alba Ojeda MD Primary Care Provider Fadia Gan MD Primary Care Prov ider Marina Mcguire MD Unavailable [phone] Margarita Quevedo PA-C Unavailable Antwon Camilo PA-C Unavailable [phone] Encounter Details Date Type Department Care Team Description 06/09/2016 Seed Cleaner Report Medical Records [address] [place] [address] Sanjuanita Ordonez PA-C [address] [address] Social History Tobacco Use Types Packs/Day Years [...] documented as of this encounter Care Teams Ceramic Research Engineer Relationship Specialty Start Date End Date Yris Arreaga MD PCP - General Internal Medicine 09/07/15 9 Alba Ojeda MD PCP - General Internal Medicine 11/21/18 02/13/22 Fadia Arcos MD [address] [place] [address] PCP - General Internal Medicine 02/14/22 Marina Mcguire MD [address] [address] Surgeon Neurosurgery 04/26/23 Margarita Quevedo PA-C [address] [address] Specialist Neurosurgery 04/26/23 Antwon Camilo PA-C 175 [facility] [address] [place] [address] Specialist Neurosurgery 04/26/23 documented as of this encounter
--- OUTSIDE RECORDS SUMMARY | 2025-04-11 08:37 | XMS_ITS | Encounter Summary ---
Author Organization [facility] Prior to 02/16/2024 Address [address] [place] [address] Care Team Providers Care Cco & President Name Role Phone Name, Audi IVEY Primary Care Provider Unavailabl e Name, Audi IVEY Primary Care Provider Unavailabl e Yris Arreaga MD Primary Care Provider Un available Alba Ojeda MD Primary Care Provider Fadia Gan MD Primary Care Prov ider Marina Mcguire MD Unavailable [phone] Margarita Quevedo PA-C Unavailable [phone] Antwon Camilo PA-C Unavailable [phone] Encounter Details Date Type Department Care Team Description 11/07/2014 [address] [address] Brad Santana OD Social History Tobacco Use Types Packs/Day Years [...] Encounter - Brad Santana OD - 11/07/2014 5:00 PM EDT . documented in this encounter Plan of Treatment Not on file documented as of this encounter Visit Diagnoses Not on filedocumented in this encounter Additional Health Concerns Infection Onset Date Last Indicated Resolved Time COVID-19 Comment:Patient reporting positive test 05/08/2023 05/09/2023 06/13/2023 11:08 AM EST documented as of this encounter Care Teams Cco & President Relationship Specialty Start Date End Date Name, MD Audi PCP - General 06/29/07 06/08/15 Name, MD Audi PCP - General Internal Medicine 06/09/15 09/06/15 Yris Arreaga MD PCP - General Internal Medicine 09/07/15 9 Alba Ojeda MD PCP - General Internal Medicine 11/21/18 02/13/22 Carlos Rojo, Fadia Moreno MD [address] [place] [address] PCP - General Internal Medicine 02/14/22 Marina Mcguire MD [address] [address] Surgeon Neurosurgery 04/26/23 Margarita Quevedo PA-C [address] [address] Specialist Neurosurgery 04/26/23 Antwon Camilo PA-C [address] [address] Specialist Neurosurgery 04/26/23 documented as of this encounter
--- OUTSIDE RECORDS SUMMARY | 2025-04-11 08:37 | XMS_ITS | Encounter Summary ---
Author Organization [facility] Prior to 02/16/2024 Address [address] [place] [address] Care Team Providers Care Tip Length Checker Name Role Phone Fadia Arcos MD Primary Care Prov ider Marina Mcguire MD Unavailable [phone] Margarita Quevedo PA-C Unavailable Antwon Camilo PA-C Unavailable Encounter Details Date Type Department Care Team Description 04/26/2023 [facility] Neurosurgery [place] [address] [phone] Antwon Camilo PA-C [address] [phone] Social History Tobacco Use Types Packs/Day Years [...] documented as of this encounter Care Teams Tip Length Checker Relationship Specialty Start Date End Date Fadia Arcos MD [address] [place] [address] PCP - General Internal Medicine 02/14/22 Marina Mcguire MD [address] [address] Surgeon Neurosurgery 04/26/23 Margarita Quevedo PA-C [address] [address] Specialist Neurosurgery 04/26/23 Antwon Camilo PA-C [address] [id number] Specialist Neurosurgery 04/26/23 documented as of this encounter
--- OUTSIDE RECORDS SUMMARY | 2025-04-11 08:37 | XMS_ITS | Encounter Summary ---
[facility] Organization [facility] to [facility]16[facility]24 Address [address] [place] [address] Care Team Providers Care Truck Body Repairer Name Role Phone Name, Audi IVEY Primary Care Provider Unavailabl e Name, Audi IVEY Primary Care Provider Unavailabl e Yris Arreaga MD Primary Care Provider Un available Alba Ojeda MD Primary Care Provider Fadia Gan MD Primary Care Prov ider Marina Mcguire MD Unavailable [phone] Margarita Quevedo PA-C Unavailable [phone] Antwon Camilo PA-C Unavailable [phone] Encounter Details Date Type Department Care Team Description 03/29/2012 Cardiology Procedure Cardiology - [address] [address] Social History Tobacco Use Types Packs/Day Years Used Date Smoking Tobacco: Never Smokeless Tobacco: Never Alcohol Use Standard Drinks/Week Comments No 0 (1 standard drink = 0.6 oz pur e alcohol) Sex Assigned at Date Recorded Not on file Job Start Date Occupation Industry Not on file Not on file Not on file documented as of this encounter Procedure Notes * Servando Fields - 03/29/2012 9:41 AM EST Patient Name: ENEDELIA [facility]PTON [facility] Cardiology Department Date of Service: HOLTER MONITOR INDICATION: Syncope. The predominant rhythm is normal sinus rhythm. The minimum heart rate is 56, being sinus bradycardia, the average heart rate is 86, the maximum heart rate is 153 beats per minute, all being sinus mechanism. There was only 1 PVC, no PACs, no runs of AFib, flutter or ventricular tachycardia. There were several episodes of asymptomatic blocked PACs that occurred at 5:08 in the morning. The patient did have chest discomfort while sitting with sinus rhythm at 64 beats per minute. IMPRESSION: A normal Holter. Servando Fields MD cc: / documented in this encounter Plan of Treatment Not on file documented as of this encounter Visit Diagnoses Not on filedocumented in this encounter Additional Health Concerns Infection Onset Date Last Indicated Resolved Time COVID-19 Comment:Patient reporting positive test 05/08/2023 05/09/2023 06/13/2023 11:08 AM EST documented as of this encounter Care Teams Truck Body Repairer Relationship Specialty Start Date End Date Name, MD Audi PCP - General 06/29/07 06/08/15 Audi Coleman MD PCP - General Internal Medicine 06/09/15 09/06/15 Yris Arreaga MD PCP - General Internal Medicine 09/07/15 Alba Segundo MD PCP - General Internal Medicine 11/21/18 02/13/22 Fadia Arcos MD [address] [place] [address] PCP - General Internal Medicine 02/14/22 Marina Mcguire MD [address] [address] Surgeon Neurosurgery 04/26/23 Margarita Quevedo PA-C [address] [address] Specialist Neurosurgery 04/26/23 Antwon Camilo PA-C [address] [address] Specialist Neurosurgery 04/26/23 documented as of this encounter
--- OUTSIDE RECORDS SUMMARY | 2025-04-11 08:37 | XMS_ITS | Encounter Summary ---
Author Organization [facility] Prior to 02/16/2024 Address [address] [place] [address] Care Team Providers Care School Administrator Name Role Phone Fadia Arcos MD Primary Care Prov ider Marina Mcguire MD Unavailable [phone] Margarita Quevedo PA-C Unavailable Antwon Camilo PA-C Unavailable Encounter Details Date Type Department Care Team Description 04/28/2023 [facility]AN [facility] Neurosurgery [place] [address] [phone] Antwon Camilo PA-C [address] [id number] Social History Tobacco Use Types Packs/Day Years [...] documented as of this encounter Care Teams School Administrator Relationship Specialty Start Date End Date Fadia Arcos MD [address] [place] [address] PCP - General Internal Medicine 02/14/22 Marina Mcguire MD [address] [address] Surgeon Neurosurgery 04/26/23 Margarita Quevedo PA-C [address] [address] Specialist Neurosurgery 04/26/23 Antwon Camilo PA-C [address] [id number] Specialist Neurosurgery 04/26/23 documented as of this encounter
--- OUTSIDE RECORDS SUMMARY | 2025-04-11 08:37 | XMS_ITS | Encounter Summary ---
Author Organization [facility] Prior to 02/16/2024 Address [address] [place] [address] Care Team Providers Care Equine Pharmacology Technician Name Role Phone Fadia Arcos MD Primary Care Prov ider Marina Mcguire MD Unavailable [phone] Margarita Quevedo PA-C Unavailable [phone] Antwon Camilo PA-C Unavailable [phone] Encounter Details Date Type Department Care Team Description 06/06/2023 Safe Deposit Attendant Report Medical Records [address] [place] [address] Tiff Mcfarland PA-C Social History Tobacco Use Types Packs/Day Years [...] documented as of this encounter Care Teams Equine Pharmacology Technician Relationship Specialty Start Date End Date Fadia Arcos MD [address] [place] [address] PCP - General Internal Medicine 02/14/22 Marina Mcguire MD [address] [phone] Surgeon Neurosurgery 04/26/23 Margarita Quevedo PA-C [address] [id number] Specialist Neurosurgery 04/26/23 Antwon Camilo PA-C 175 [facility] [address] [place] [address] Specialist Neurosurgery 04/26/23 documented as of this encounter
--- OUTSIDE RECORDS SUMMARY | 2025-04-11 08:37 | XMS_ITS | Encounter Summary ---
Author Organization [facility] Prior to 02/16/2024 Address [address] [place] [address] Care Team Providers Care Mat Making Machine Tender Name Role Phone Fadia Arcos MD Primary Care Prov ider Marina Mcguire MD Unavailable [phone] Margarita Quevedo PA-C Unavailable [phone] Antwon Camilo PA-C Unavailable [phone] Encounter Details Date Type Department Care Team Description 02/22/2023 Pecan Sheller Report Medical Records [address] [place] [place] [address] Tiff Mcfarland PA-C Social History Tobacco Use [...] documented as of this encounter Care Teams Mat Making Machine Tender Relationship Specialty Start Date End Date Fadia Arcos MD [address] [place] [address] PCP - General Internal Medicine 02/14/22 Marina Mcguire MD [address] [id number] Surgeon Neurosurgery 04/26/23 Margarita Quevedo PA-C [address] [id number] Specialist Neurosurgery 04/26/23 Antwon Camilo PA-C 175 [facility] [address] [place] [address] Specialist Neurosurgery 04/26/23 documented as of this encounter
--- OUTSIDE RECORDS SUMMARY | 2025-04-11 08:37 | XMS_ITS | Encounter Summary ---
Author Organization [facility] Prior to 02/16/2024 Address [address] [place] [address] Care Team Providers Care Renewals Manager Name Role Phone Alba Ojeda MD Primary Care Provider Fadia Gan MD Primary Care Prov ider Marina Mcguire MD Unavailable [phone] Margarita Quevedo PA-C Unavailable [phone] Antwon Camilo PA-C Unavailable Reason for Visit * Reason Onset Date Comments Congestion 02/18/2021 Headache 02/18/2021 infectious disease 02/18/2021 Encounter Details Date Type Department Care Team Description 02/18/2021 Telephone Adult [address] [address] Alba Ojeda MD Congestion; Headache; infectious disease Social History Tobacco Use Types Packs/Day Years [...] encounter Miscellaneous Notes * Telephone Encounter - Bj Adrián - 02/18/2021 10:26 AM EDT Symptoms patient is presenting: pt found out she was covid + yesterday states head ache and conjestion For ALL patients calling to schedule any appointment (routine, sick visit, follow up, consult, etc.) in the outpatient setting please ask the following questions: ?? Do you have fever of higher than 101, sore throat with difficulty swallowing or severe shortnessof breath? NO If YES to any of these above symptoms, send a message to triage and do not book. Red dot. If no, an audio or video visit should be booked. ?? Have you had close contact with someone with Coronavirus in the last 14 days? NO ?? Have you traveled abroad? NO ?? Have you traveled recently to another state outside of [place], [place], [place], [place], [place], [place], [place]? NO o If yes, did you quarantine for 14 days or have a negative covid test? NO If yes to any of the above, patient is not to be scheduled in office until after 14 day quarantine or negative covid test. If pain or injury related was it due to an accident at work or from a motor vehicle accident? NO If yes, gather 3rd green party insurance information Date of accident/Injury: How long has patient had these symptoms?: yesterday PCP: Alba Ojeda Payor: [facility] MEDICAID / Plan: [facility] MEDICAID O $0 [place] / Product Type: HMO [id number] documented in this encounter Plan of Treatment Not on file documented as of this encounter Visit Diagnoses Not on filedocumented in this encounter Additional Health Concerns Infection Onset Date Last Indicated Resolved Time COVID-19 Comment:Patient reporting positive test 05/08/2023 05/09/2023 06/13/2023 11:08 AM EST documented as of this encounter Care Teams Renewals Manager Relationship Specialty Start Date End Date Alba Ojeda MD PCP - General Internal Medicine 11/21/18 02/13/22 Fadia Arcos MD [address] [place] [address] PCP - General Internal Medicine 02/14/22 Marina Mcguire MD 175 [facility] [address] [place] [address] Surgeon Neurosurgery 04/26/23 Margarita Quevedo PA-C [address] [address] Specialist Neurosurgery 04/26/23 Antwon Camilo PA-C [address] [address] Specialist Neurosurgery 04/26/23 documented as of this encounter
--- OUTSIDE RECORDS SUMMARY | 2025-04-11 08:37 | XMS_ITS | Encounter Summary ---
Author Organization [facility] Prior to 02/16/2024 Address [address] [place] [address] Care Team Providers Care Shroud Line Tier Name Role Phone Alba Ojeda MD Primary Care Provider Fadia Gan MD Primary Care Prov ider Marina Mcguire MD Unavailable [phone] Margarita Quevedo PA-C Unavailable [phone] Antwon Camilo PA-C Unavailable [phone] Encounter Details Date Type Department Care Team Description 02/22/2019 Old Medical Records Medical Records [address] [place] [address] Abstract, Provider Social History Tobacco Use Types Packs/Day Years [...] documented as of this encounter Care Teams Shroud Line Tier Relationship Specialty Start Date End Date Alba Ojeda MD PCP - General Internal Medicine 11/21/18 02/13/22 Fdaia Arcos MD [address] [place] [address] [place] [address] PCP - General Internal Medicine 02/14/22 Marina Mcguire MD [address] [address] Surgeon Neurosurgery 04/26/23 Margarita Quevedo PA-C [address] [address] Specialist Neurosurgery 04/26/23 Antwon Camilo PA-C [address] [address] Specialist Neurosurgery 04/26/23 documented as of this encounter
--- OUTSIDE RECORDS SUMMARY | 2025-04-11 08:37 | XMS_ITS | Encounter Summary ---
Author Organization [facility] Prior to 02/16/2024 Address [address] [place] [address] Care Team Providers Care Inspector Soldering Name Role Phone Name, Audi IVEY Primary Care Provider Unavailabl e Name, Audi IVEY Primary Care Provider Unavailabl e Yris Arreaga MD Primary Care Provider Un available Alba Ojeda MD Primary Care Provider Fadia Gan MD Primary Care Prov ider Marina Mcguire MD Unavailable [phone] Margarita Quevedo PA-C Unavailable [phone] Antwon Camilo PA-C Unavailable [phone] Encounter Details Date Type Department Care Team Description 02/12/2013 Orders Only FIELD CASE MANAGER - [address] [phone] Flaca Leigh CNM Threatened , unspecified as to episode of care (Primary Dx) Social History Tobacco Use Types Packs/Day Years [...] on file documented as of this encounter Results * HCG/ (BLOOD) QUANTITATIVE (02/12/2013 12:52 PM EDT) TOTAL BETA HCG, QUANTITATIVE 11267.0 mIU/mL 02/12/2013 3:16 PM EDT [facility] Comment: Quantitative HCG Reference Ranges Weeks of Gestation mIU/ML 3 Weeks 5.8 - 71.2 4 Weeks 9.5 - 750 5 Weeks 217 - 7,138 6 Weeks 158 - 31,795 7 Weeks 3,697 - 163,563 8 Weeks 32,065 - 149,571 9 Weeks 63,803 - 151,410 10 Weeks 46,509 - 186,977 12 Weeks 27,832 - 210,612 14 Weeks 13,950 - 62,530 15 Weeks 12,039 - 70,971 16 Weeks 9,040 - 56,451 17 Weeks 8,175 - 55,868 18 Weeks 8,099 - 58,176 Non- Females 0.0-5.3 Postmenopausal Females 0.0-8.3 02/12/2013 12:5 2 PM EDT 02/12/2013 12:53 PM EDT [facility] [place] [facility] Performing Organization Address City/State/[facility] Co de Phone Number [address] documented in this encounter Visit Diagnoses Diagnosis Threatened , unspecified as to episode of care- Primary documented in this encounter Additional Health Concerns Infection Onset Date Last Indicated Resolved Time COVID-19 Comment:Patient reporting positive test 05/08/2023 05/09/2023 06/13/2023 11:08 AM EST documented as of this encounter Care Teams Inspector Soldering Relationship Specialty Start Date End Date Name, MD Audi PCP - General 06/29/07 06/08/15 Name, MD Audi PCP - General Internal Medicine 06/09/15 09/06/15 Yris Arreaga MD PCP - General Internal Medicine 09/07/15 9 Alba Ojeda MD PCP - General Internal Medicine 11/21/18 02/13/22 Fadia Arcos MD [address] [place] [address] PCP - General Internal Medicine 02/14/22 Marina Mcguire MD [address] [address] Surgeon Neurosurgery 04/26/23 Margarita Quevedo PA-C [address] [address] Specialist Neurosurgery 04/26/23 Antwon Camilo PA-C [address] [address] Specialist Neurosurgery 04/26/23 documented as of this encounter
--- OUTSIDE RECORDS SUMMARY | 2025-04-11 08:37 | XMS_ITS | Encounter Summary ---
Author Organization [facility] Prior to 02/16/2024 Address [address] [place] [address] Care Team Providers Care Dining Car Hop Name Role Phone Yris Arreaga MD Primary Care Provider Un available Alba Ojeda MD Primary Care Provider Fadia Gan MD Primary Care Prov ider Marina Mcguire MD Unavailable [phone] Margarita Quevedo PA-C Unavailable [phone] Antwon Camilo PA-C Unavailable [phone] Encounter Details Date Type Department Care Team Description 06/12/2017 Prosthetics Lab Technician Report Medical Records [address] [place] [address] Shahzad Bray MD Social History Tobacco Use Types Packs/Day [...] documented as of this encounter Care Teams Dining Car Hop Relationship Specialty Start Date End Date Yris Arreaga MD PCP - General Internal Medicine 09/07/15 9 Alba Ojeda MD PCP - General Internal Medicine 11/21/18 02/13/22 Fadia Arcos MD [address] [place] [address] PCP - General Internal Medicine 02/14/22 Marina Mcguire MD 175 [facility] [address] [place] [address] Surgeon Neurosurgery 04/26/23 Margarita Quevedo PA-C 175 [facility] [address] [place] [address] Specialist Neurosurgery 04/26/23 Antwon Camilo PA-C 175 [facility] [address] [place] [address] Specialist Neurosurgery 04/26/23 documented as of this encounter
--- OUTSIDE RECORDS SUMMARY | 2025-04-11 08:37 | XMS_ITS | Encounter Summary ---
Author Organization [facility] Prior to 02/16/2024 Address [address] [place] [address] Care Team Providers Care Ice Cream Freezer Helper Name Role Phone Name, Audi IVEY Primary Care Provider Unavailabl e Name, Audi IVEY Primary Care Provider Unavailabl e Yris Arreaga MD Primary Care Provider Un available Alba Ojeda MD Primary Care Provider Fadia Gan MD Primary Care Prov ider Marina Mcguire MD Unavailable [phone] Margarita Quevedo PA-C Unavailable [phone] Antwon Camilo PA-C Unavailable [phone] Encounter Details Date Type Department Care Team Description 01/07/2014 Partner Management Consultant Report Medical Records [address] [place] [address] Social History Tobacco Use Types Packs/Day Years [...] documented as of this encounter Care Teams Ice Cream Freezer Helper Relationship Specialty Start Date End Date Name, MD Audi PCP - General 06/29/07 06/08/15 [place], MD Audi PCP - General Internal Medicine 06/09/15 09/06/15 Yris Arreaga MD PCP - General Internal Medicine 09/07/15 Alba Segundo MD PCP - General Internal Medicine 11/21/18 02/13/22 Fadia Arcos MD [address] [place] [address] PCP - General Internal Medicine 02/14/22 Marina Mcguire MD [address] [address] Surgeon Neurosurgery 04/26/23 Margarita Quevedo PA-C [address] [address] Specialist Neurosurgery 04/26/23 Antwon Camilo PA-C 175 [facility] [address] [place] [address] Specialist Neurosurgery 04/26/23 documented as of this encounter
--- OUTSIDE RECORDS SUMMARY | 2025-04-11 08:37 | XMS_ITS | Clinical Summary ---
Author Organization [address] Address [address] [place] [phone] Phone Care Team Providers Care Roughener Name Role Phone Fadia Ramos MD Primary Care Prov ider Allergies Active Allergy Reactions Criticality Noted Date Comments Amitriptyline Headache,Nausea Only 03/21/2024 Morphine 03/21/2024 Sumatriptan 07/18/2007 Injection Zolmitriptan 11/11/2009 Dizziness and nausea Medications prednisoLONE acetate (PRED FORTE) 1 % ophthalmic suspension INSTILL 1 DROP 4 TIMES A DAY INTO BOTH EYES FOR 2 WKS, THEN TWICE DAILY INTO BOTH EYES 4 Active promethazine (PHENERGAN) 25 mg tablet Take 1 Tablet by mouth every 8 hours as needed for Nausea. 3 Active topiramate (TOPAMAX) 25 mg tablet 2 tablets (50 mg total). 50 mg QAM and 100 mg QPM 4 Active EPINEPHrine (EpiPen 2-Cyril) 0.3 mg/0.3 mL injection Inject 0.3 mg into the muscle as needed for Other (anaphylactic reaction). 2-pack. Fill with whichever brand is covered by insurance. 3 Active albuterol HFA (PROAIR HFA ; PROVENTIL HFA ; VENTOLIN HFA) 90 mcg/actuation inhaler Inhale 2 puffs by mouth Every 4 hours as needed. 5 09/25/19 26 Active esomeprazole (NexIUM) [address] capsule Take 1 capsule (40 mg total) by mouth 1 (one) time each day before breakfast. Do not open capsule. 30 each 3 5 01/15/20 26 Active butalbital-acetami nophen-caffeine (FIORICET, ESGIC) 50-325-40 mg per tablet Take 1 tablet by mouth 1 (one) time each day if needed for headaches or migraine. 5 Active ondansetron ODT (ZOFRAN-ODT) 4 mg disintegrating tablet Dissolve 1 tablet (4 mg total) on top of the tongue 1 (one) time each day if needed. 5 Active Active Problems Problem Noted Date Diagnosed Date Mobitz type I Wenckebach atrioventricular block 03/07/2025 Family history of breast cancer 03/07/2024 Overview [...] this is reasonable. 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 I did have a discussion with the surgeon about her and he will go over the films and decide on a plan from there. Helicobacter pylori gastritis 07/01/2021 Overview (01/31/2024): Eradicated 06/2021 COVID-19 03/05/2021 Severe obesity (BMI 35.0-39.9) with comorbidity 05/09/2019 Pain of foot 10/18/2013 Overview (01/31/2024): [...] Encounters Date Type Department Care Team Description 03/18/2025 8:45 AM EST Office Visit Orthopedic Surgery - [place] [address] [place] [address] [place] [phone] Manuel Muñoz, DPM Peroneal tendinitis of lower leg, right (Primary Dx); Pain in right foot; Disorder of ligament of ankle, right; Lumbosacral radiculopathy 03/10/2025 Results Follow-Up Adult Medicine [address] [phone] Diya Bell PA 03/07/2025 11:05 AM EST Lab Draw Station [address] Dizziness 03/07/2025 10:00 AM EST Office Visit Adult Medicine [address] [phone] Diya Bell PA Dizziness (Primary Dx); Migraine without status migrainosus, not intractable, unspecified migraine type; Congenital heart anomaly; Mobitz type I Wenckebach atrioventricular block; Encounter for screening involving social determinants of health (SDoH) 03/04/2025 8:45 AM EST Office Visit Orthopedic Surgery [facility] [address] [phone] Manuel Muñoz, DPM Peroneal tendinitis of lower leg, right (Primary Dx); Pain in right foot; Plantar fasciitis; Disorder of ligament of ankle, right 02/26/2025 Results Follow-Up Gastroenterology [facility] [address] [phone] Saturnino Villalobos MD 02/24/2025 Telephone Adult Medicine [address] [phone] Fadia Aquino MD 02/19/2025 Telephone Gastroenterology [facility] [address] [phone] Saturnino Villalobos MD 02/06/2025 8:35 AM EDT - 02/06/2025 11:59 PM EDT Hospital Encounter [facility] MRI [address] [place] [phone] Disorder of ligament of ankle, right Discharge Disposition: Home or Self Care 02/06/2025 Telephone Obstetrics and Gynecology [address] [phone] Ying Gonzales CNM 01/16/2025 10:00 AM EDT Office Visit Orthopedic Surgery [facility] [address] [phone] Manuel Muñoz, DPDavion Pain in right foot (Primary Dx); Peroneal tendinitis of lower leg, right; Disorder of ligament of ankle, right 01/15/2025 1:27 PM EDT Anesthesia Event [facility] Endoscopy [address] [place] [phone] Azar Jimenez DO 01/15/2025 11:11 AM EDT - 01/15/2025 11:59 PM EDT Hospital Encounter [facility] Endoscopy [address] [place] [phone] Saturnino Villalobos MD Steele, Matthew G, CRNA Dysphagia, unspecified type; Gastroesophageal reflux disease without esophagitis Discharge Disposition: Home or Self Care 01/14/2025 11:10 AM EDT Consult Gastroenterology - [place] 175 [facility] 175 [facility] [address] [place] [phone] Caitlin Solomon PA Gastroesophageal reflux disease without esophagitis (Primary Dx); Helicobacter pylori gastritis; Dysphagia, unspecified type from Last 3 Months Immunizations Immunization Administration [...] Date Site/Laterality Comments OTHER SURGICAL HISTORY PROCEDURE: NV EXC COARCJ AORTA W/WO PDA W/DIRECT ANASTOMOSIS; COMMENT: 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 For example, child care giver or elderly care for an older adult? [...] Livin g [place] 009 Term Vag-S liv miek [place] Comments: he morrhage - blood transfusion 2014 Term Vag-S liv mike Comments:System Genera sruthi. Please review and update details. 2017 Term Vag-S liv mike Last Filed Vital Signs Vital Sign Reading Time Taken Comments Blood Pressure 116/81 03/07/2025 9:54 AM EST Pulse 61 03/07/2025 9:54 AM EST Temperature 35.6 C (96 F) 03/07/2025 9:54 AM EST Respiratory Rate 14 03/07/2025 9:54 AM EST Oxygen Saturation 98% 03/07/2025 9:54 AM EST Inhaled Oxygen Concentration - - Weight 81.6 kg (180 lb) 03/07/2025 9:54 AM EST Height 160 cm (5' 3 ) 03/07/2025 9:54 AM EST Body Mass Index 31.89 03/07/2025 9:54 AM EST Plan of Treatment Upcoming Encounters Date Type Department Care Team (Late st Contact Info) Description 07/10/2025 11:10 AM EDT Office Visit Gastroenterology - [address] [place] [phone] Caitlin Solomon PA 299 [facility] [address] [place] [address] 07/25/2025 11:10 AM EDT Appointment Radiology Department - [address] [phone] Health Maintenance Due Date Last Done Comments Drug Screen 1984 Non-Opioid Controlled Substance Agreement 1984 HPV Vaccines (1 - 3-dose SCDM series) 01/10/2011 HIV Screening 03/20/2022 Hepatitis C Screening 03/20/2022 COVID-19 Vaccine ( season) 2024 09/18/2020, 08/28/2020 Cholesterol Screening (Lipid Panel) 06/11/2025 06/11/2020 Social Influencers of Health Screening 03/07/2026 03/07/2025 Breast Cancer Screening 07/31/2026 07/31/2024, 07/23 Cervical [...] Completed 01/20/2025, , 01/06/2021, Additional history exists Depression Screening Completed 02/24/2025 HIB Vaccines Aged Out No longer eligi [...] Procedure Name Priority Date/Time Associated Diagnosis Comments CBC WITH AUTO DIFFERENTIAL Routine 03/07/2025 11:29 AM EST Dizziness CBC AND DIFFERENTIAL Routine 03/07/2025 11:29 AM EST Dizziness MAGNESIUM Routine 03/07/2025 11:29 AM EST Dizziness COMPREHENSIVE METABOLIC PANEL Routine 03/07/2025 11:29 AM EST Dizziness THYROID STIMULATING HORMONE WITH REFLEX TO FREE T4 AND FREE T3 Routine 03/07/2025 11:29 AM EST Dizziness ECG 12-LEAD Routine 03/07/2025 11:04 AM EST Dizziness Congenital heart anomaly INJECTION TENDON OR LIGAMENT Routine 03/04/2025 8:45 AM EST Disorder of ligament of ankle, right MR ANKLE WO CONTRAST RIGHT Routine 02/06/2025 [...] Recently Relevant to Health Maintenance Results * Thyroid stimulating hormone with reflex to free t4 and free t3 (03/07/2025 11:29 AM EST) TSH 2.04 0.40 - 4.00 mcIU/mL 03/07/2025 2:54 PM EST [facility] Blood Venous blood specimen / Unknown Venipuncture / Unknown 03/07/2025 11:29 AM EST 03/07/2025 11:29 AM EST us Diya RODRIGUEZ LAB BLOOD ORDERABLES Final Resul t [facility] [address] [place] [address], [place] [phone] * (ABNORMAL) CBC auto differential (03/07/2025 11:29 AM EST) [facility] WBC 10.4 4.8 - 10.8 K/mcL LAB HEMETOLOGY METHOD 03/07/2025 2:25 PM [facility] RBC 4.70 3.80 - 4.80 M/mcL LAB HEMETOLOGY METHOD 03/07/2025 2:25 PM [facility] Hemoglobin 12.3 11.5 - 16.0 g/dL LAB HEMETOLOGY METHOD 03/07/2025 2:25 PM [facility] Hematocrit 39.0 35.0 - 47.0 % LAB HEMETOLOGY METHOD 03/07/2025 2:25 PM [facility] MCV 83.5 79.0 - 98.0 FL LAB HEMETOLOGY METHOD 03/07/2025 2:25 PM [facility] MCH 26.3(L) 27.0 - 32.0 pcg LAB HEMETOLOGY METHOD 03/07/2025 2:25 PM [facility] MCHC 31.5(L) 32.0 - 37.0 g/dL LAB HEMETOLOGY METHOD 03/07/2025 2:25 PM [facility] RDW 16.9(H) 11.0 - 15.0 % LAB HEMETOLOGY METHOD 03/07/2025 2:25 PM [facility] Platelets 419(H) 130 - 400 K/mcL LAB HEMETOLOGY METHOD 03/07/2025 2:25 PM [facility] MPV 9.9 7.0 - 11.0 FL LAB HEMETOLOGY METHOD 03/07/2025 2:25 PM [facility] NRBC 0.0 <1.0 % LAB HEMETOLOGY METHOD 03/07/2025 2:25 PM [facility] NRBC Absolute 0.00 <0.10 K/mcL LAB HEMETOLOGY METHOD 03/07/2025 2:25 PM [facility] Neutrophils Relative 64.5 % LAB HEMETOLOGY METHOD 03/07/2025 2:25 PM [facility] Lymphocytes Relative 25.7 % LAB HEMETOLOGY METHOD 03/07/2025 2:25 PM [facility] Monocytes Relative 8.3 % LAB HEMETOLOGY METHOD 03/07/2025 2:25 PM [facility] Eosinophils Relative 0.4 % LAB HEMETOLOGY METHOD 03/07/2025 2:25 PM [facility] Basophils Relative 0.8 % LAB HEMETOLOGY METHOD 03/07/2025 2:25 PM [facility] Immature Granulocytes Relative 0.3 % LAB HEMETOLOGY METHOD 03/07/2025 2:25 PM [facility] Neutrophils Absolute 6.68 1.50 - 7.00 K/mcL LAB HEMETOLOGY METHOD 03/07/2025 2:25 PM [facility] Lymphocytes Absolute 2.66 1.00 - 5.00 K/mcL LAB HEMETOLOGY METHOD 03/07/2025 2:25 PM [facility] Monocytes Absolute 0.86 0.20 - 1.00 K/mcL LAB HEMETOLOGY METHOD 03/07/2025 2:25 PM [facility] Eosinophils Absolute 0.04 0.00 - 0.50 K/mcL LAB HEMETOLOGY METHOD 03/07/2025 2:25 PM [facility] Basophils Absolute 0.08 0.00 - 0.20 K/mcL LAB HEMETOLOGY METHOD 03/07/2025 2:25 PM [facility] Immature Granulocytes Absolute 0.03 0.00 - 0.03 K/mcL LAB HEMETOLOGY METHOD 03/07/2025 2:25 PM [facility] Blood Venous blood specimen / Unknown Venipuncture / Unknown 03/07/2025 11:29 AM EST 03/07/2025 11:29 AM EST Diya RODRIGUEZ LAB BLOOD ORDERABLES Final Resul t Performing Organization Address City/[facility]/ZIP Co de Phone Number [facility] [address] [place] [address], [place] [phone] * Magnesium (03/07/2025 11:29 AM EST) Pathologist [facility] Magnesium 2.0 1.9 - 2.6 mg/dL 03/07/2025 3:00 PM [facility] Blood Venous blood specimen / Unknown Venipuncture / Unknown 03/07/2025 11:29 AM EST 03/07/2025 11:29 AM EST Diya RODRIGUEZ LAB BLOOD ORDERABLES Final Resul t Performing Organization Address City/[facility]/ZIP Co de Phone Number [facility] [address] [place] [address], [place] [phone] * Comprehensive metabolic panel (03/07/2025 11:29 AM EST) Pathologist [facility] Sodium 138 133 - 145 mmol/L 03/07/2025 3:00 PM [facility] Potassium 4.2 3.5 - 5.5 mmol/L 03/07/2025 3:00 PM [facility] Chloride 102 96 - 110 mmol/L 03/07/2025 3:00 PM [facility] CO2 25 21 - 32 mmol/L 03/07/2025 3:00 PM [facility] Anion Gap 11 3 - 11 03/07/2025 3:00 PM [facility] Glucose 88 70 - 100 mg/dL 03/07/2025 3:00 PM [facility] BUN 14 5 - 25 mg/dL 03/07/2025 3:00 PM [facility] Creatinine 0.83 0.50 - 1.10 mg/dL 03/07/2025 3:00 PM [facility] eGFR 91 >=60 mL/min/1. 73m2 03/07/2025 3:00 PM [facility] Comment:Calculation based on the Chronic Kidney Disease Epidemiology Collaboration (CKD-EPI) equation refit without adjustment for race. BUN/Creatinine Ratio 16.9 03/07/2025 3:00 PM [facility] Calcium 8.9 8.5 - 10.5 mg/dL 03/07/2025 3:00 PM [facility] AST (SGOT) 13 10 - 42 unit/L 03/07/2025 3:00 PM [facility] ALT (SGPT) 17 10 - 60 unit/L 03/07/2025 3:00 PM [facility] Alkaline Phosphatase 111 42 - 121 unit/L 03/07/2025 3:00 PM [facility] Total Protein 7.9 6.0 - 8.0 g/dL 03/07/2025 3:00 PM [facility] Albumin 4.2 3.2 - 5.0 g/dL 03/07/2025 3:00 PM [facility] Total Bilirubin 0.3 0.0 - 1.4 mg/dL 03/07/2025 3:00 PM [facility] Blood Venous blood specimen / Unknown Venipuncture / Unknown 03/07/2025 11:29 AM EST 03/07/2025 11:29 AM EST us Diya RODRIGUEZ LAB BLOOD ORDERABLES Final Resul t [facility] [address] [place] [address], [place] [phone] * ECG 12 lead (03/07/2025 11:04 AM EST) Impressions Maguire GenevieveDEYA kay - 03/07/2025 11:04 AM EST EKG: Normal intervals. Rate 59 bpm. Sinus bradycardia. Borderline T abnormalities. No acute change compared to previous from 10/25/2013. us Diya RODRIGUEZ ECG ORDERABLES Final Result * Injection tendon or ligament (03/04/2025 8:45 AM EST) Narrative Manuel Muñoz DPM - 03/04/2025 8:45 AM EST Manuel Muñoz DPM 03/04/2025 12:51 PM Injection tendon or ligament Indications: pain Details: 25 G needle Medications: 0.5 mL lidocaine (PF) 1 %; 40 mg triamcinolone acetonide 40 mg/mL Informed Consent: Laterality: Right Manuel Muñoz DPM IN CLINIC/BEDSIDE ORDERABLE S Final Result * MR Ankle wo Contrast Right (02/06/2025 9:32 AM EDT) Anatomical Region Laterality Modality Lower Extremities, Ankle Right Magneti c Resonance 02/10/2025 3:2 2 AM EDT Impressions 02/10/2025 3:34 AM EDT Insertional tearing and/or tendinosis of the peroneus brevis tendon with mild peroneal tenosynovitis and overlying subcutaneous soft tissue edema -------- FINAL REPORT -------- Dictated By: Barbara Mims Dictated Date: 02/10/2025 03:22 ET Assigned Physician: Barbara Mims Reviewed and Electronically Signed By: Barbara Mims Signed Date: 02/10/2025 03:34 ET Workstation ID: [id number] Transcribed By: Self Edit Transcribed Date: 02/10/2025 [...] Signed Date: 02/10/2025 03:34 ET Workstation ID: [id number] Transcribed By: Self Edit Transcribed Date: 02/10/2025 03:22 ET Manuel Muñoz DPM IMG MRI PROCEDURES Final Re sult * EGD Anesthesia - MAC; [facility] ENDOSCOPY (01/15/2025 1:50 PM EDT) Anatomical Region Laterality Modality Endoscopy 01/15/2025 1:37 PM EDT Impressions 01/15/2025 1:51 PM EDT - Normal examined duodenum. - Normal stomach. - Extrinsic compression in the middle third of the esophagus. - No specimens collected. Recommendation: - Discharge patient to home. - Return to referring physician as previously scheduled. Narrative 01/15/2025 1:51 PM EDT [facility] GI Patient Name: Venkata Hampton Procedure Date: 01/15/2025 1:37 PM Date of [...] verified by the physician, the nurse, the sighter and the screening technician in the pre-procedure area in the [...] the esophagus. Procedure Code(s): --- Professional --- 52503, Esophagogastroduodenoscopy, flexible, transoral; diagnostic, including collection of specimen(s) by brushing or washing, when performed (separate procedure) Diagnosis Code(s): --- Professional --- K22.2, Esophageal obstruction R13.10, Dysphagia, unspecified CPT copyright 2020 [employer]. All rights reserved. The codes documented in this report are preliminary and upon balloon pilot review may be revised to meet current compliance requirements. Saturnino Villalobos MD 01/15/2025 1:51:36 PM This report has been signed electronically.Saturnino Villalobos MD Number of Addenda: 0 Note Initiated On: 01/15/2025 1:37 PM Scope In: Scope Out: Endoscopy Department at [facility] - [address] [place] [phone] Procedure Note Saturnino Villalobos MD - 01/15/2025 [facility] GI Patient Name: Venkata Hampton Procedure Date: 01/15/2025 1:37 PM Date of [...] the physician, the nurse, theanesthetist and the screening technician in the pre-procedure area in the [...] the esophagus. Procedure Code(s): --- Professional --- 35194, Esophagogastroduodenoscopy, flexible, transoral; diagnostic, including collection of specimen(s) by brushing or washing, when performed (separate procedure) Diagnosis Code(s): --- Professional --- K22.2, Esophageal obstruction R13.10, Dysphagia, unspecified CPT copyright 2020 [employer]. All rights reserved. The codes documented in this report are preliminary and upon balloon pilot reviewmay be revised to meet current compliance requirements. Saturnino Villalobos MD 01/15/2025 1:51:36 PM This report has been signed electronically.Saturnino Villalobos MD Number of Addenda: 0 Note Initiated On: 01/15/2025 1:37 PM Scope In: Scope Out: Endoscopy Department at [facility] - [address] [place] [phone] IMPRESSION: - Normal examined duodenum. - Normal stomach. - Extrinsic compression in the middle third of the esophagus. - No specimens collected. Recommendation: - Discharge patient to home. - Return to referring physician as previously scheduled. Saturnino Villalobos MD GI~PROCEDURE ORDERABLES Fin al Result * Tissue exam (01/15/2025 1:48 PM EDT) Addendum Immunohistochemistry : Helicobacter pylori: negative. 7:44 AM EDT [facility] Addendum electronically signed by Chelsea Cobian MD on 01/17/2025 at 0744 EDT Final Diagnosis A. Stomach, biopsies: - Gastric antral and oxyntic mucosa with mild chronic gastritis. Note: Immunostain for Helicobacter pylori will be performed to rule out Helicobacter pylori infection in the setting of chronic gastritis as Helicobacter pylori organisms are not morphologically apparent on H&E stained slide. 7:44 AM EDT [facility] at 1133 EDT Gross Description A. Stomach, biopsies: Labeled biopsies stomach . Received in formalin are four soft, lott-pink to red tissue fragments ranging from 0.15 cm to 0.4 cm in greatest diameter, which are wrapped in paper and submitted in toto in one cassette, four pieces, multiple levels. TS 7:44 AM EDT [facility] Disclaimer NOTE: The immunohistochemical tests and in situ hybridization tests were developed and their performance characteristics were determined by [facility]. They have not been cleared [...] fixed and paraffin embedded. 7:44 AM EDT [facility] Tissue Stomach structure / Unknown 01/15/2025 1:48 PM EDT 01/15/2025 3:07 PM EDT Saturnino Villalobos MD LAB PATHOLOGY ORDERABLES Ed ited Result - Final [facility] [address] [place] [address], [place] [phone] * POC , urine NO CHARGE screening manually resulted (01/15/2025 12:38 PM EDT) HCG, Ur POC Negative Negative POC hCG Int QC Pass? Yes Yes Urine Urine specimen obtained by clean catch procedure / Unknown 01/15/2025 12:38 PM EDT Azar Jimenez DO POINT OF CARE TEST [...] is recommended in 1 year. Mammo Location: [facility], [address] [place] [address], [id number], . -------- FINAL REPORT -------- Dictated By: Ysameen Lai Dictated Date: 07/31/2024 10:05 ET Assigned Physician: Yasmeen Lai Reviewed and Electronically Signed By: Yasmeen Lai Signed Date: 07/31/2024 10:13 ET Workstation ID: [id number] Transcribed By: Self Edit Transcribed Date: 07/31/2024 [...] is recommended in 1 year. Mammo Location: [facility], [address] [place] [address], [phone], . -------- FINAL REPORT -------- Dictated By: Yasmeen Lai Dictated Date: 07/31/2024 10:05 ET Assigned Physician: Yasmeen Lai Reviewed and Electronically Signed By: Yasmeen Lai Signed Date: 07/31/2024 10:13 ET Workstation ID: [id number] Transcribed By: Self Edit Transcribed Date: 07/31/2024 10:06 ET Ying Gonzales CNM IM BI PROCEDURES Final Res ult * Cervical Cancer Screening: HPV (08/16/2021) Pathologist [facility] Cervical Cancer Screening: HPV abstracted, negative Historical Provider HEALTH MAINTENANCE Final Result * (ABNORMAL) Lipid panel (06/11/2020) [facility] LDL/HDL Ratio 3 0 - 4 Triglycerides 75 0 - 150 mg/dL Cholesterol 174 0 - 200 mg/dL HDL 54 >=40 mg/dL LDL Cholesterol 105(A) 0 - 100 mg/dL Blood Venous blood specimen / Unknown us Historical Provider LAB BLOOD ORDERABLES Lorraine l Result from Last 3 Months or Most Recently Relevant to Health Maintenance Insurance [facility] Care Teams Roughener Relationship Specialty Start Date End Date Fadia Ramos MD [address] [place] [phone] PCP - General Internal Medicine 02/14/22
--- OUTSIDE RECORDS SUMMARY | 2025-04-11 08:37 | XMS_ITS | Encounter Summary ---
[facility] Organization [facility] Address [address] [place] [address] Care Team Providers Care Adventure Guide Name Role Phone Fadia Arcos MD Primary Care Prov ider Marina Mcguire MD Unavailable [phone] Margarita Quevedo PA-C Unavailable [phone] Antwon Camilo PA-C Unavailable [phone] Encounter Details Date Type Department Care Team Description 04/06/2023 Telephone Gastroenterology - [address] [place] [id number] Gonzales Talbot PA-C Social History Tobacco Use Types Packs/Day [...] Telephone Encounter - Cynthia Sexton - 04/06/2023 1:43 PM EST Sent via Talkable * Telephone Encounter - Rosemary Reed Rn - 04/06/2023 12:38 PM EST Spoke to pt , c/o more migraines causing her to vomit, taking the naratriptan, No appt available for next two weeks, Pt to call Family Practice for appt # given Current Outpatient Medications Medication Sig Dispense Refill ??? famotidine (PEPCID) 20 MG tablet TAKE 1 TABLET BY MOUTH 2 TIMES DAILY NEEDED FOR HEARTBURN. 180 Tablet 0 ??? naproxen (NAPROSYN) 500 MG tablet Take 1 Tablet by mouth 2 times daily as needed for Pain for up to 180 days. Take with meals 360 Tablet 0 ??? cyclobenzaprine (FLEXERIL) 10 MG tablet Take 1 Tablet by mouth 3 times daily as needed for Muscle spasms for up to 30 days. 90 Tablet 0 ??? naratriptan (AMERGE) 2.5 MG tablet Take 1 Tablet by mouth as needed for Migraine. May repeat 1 dose in 4 hours if needed. Maximum 5 mg per 24 hours. 12 Tablet 1 ??? fluticasone (Flonase) 50 MCG/ACT nasal spray 2 sprays in each nostril once per day for 2 weeks.16 mL 0 ??? promethazine (PHENERGAN) 25 MG tablet Take 1 Tablet by mouth every 8 hours as needed for Nausea. 30 Tablet 0 ??? ondansetron (ZOFRAN-ODT) 4 MG disintegrating tablet No current facility-administered medications for this visit. * Telephone Encounter - Rosemary Reed Rn - 04/06/2023 12:31 PM EST Spoke to pt. Her upper gi needs a copy , for the cardioologist at [facility] pt had an apt there today , and they requesting a copy Att Dr Heather Garcia Can you release this to Pt's my chart, * Telephone Encounter - Margarita Swain - 04/06/2023 11:52 AM EST Patient is requesting her last EGD to be uploaded to her mychart if possible. Please advise documented in this encounter Plan of Treatment Not on file documented as of this encounter Visit Diagnoses Not on filedocumented in this encounter Additional Health Concerns Infection Onset Date Last Indicated Resolved Time COVID-19 Comment:Patient reporting positive test 05/08/2023 05/09/2023 06/13/2023 11:08 AM EST documented as of this encounter Care Teams Adventure Guide Relationship Specialty Start Date End Date Fadia Arcos MD [address] [place] [address] PCP - General Internal Medicine 02/14/22 Marina Mcguire MD [address] [address] Surgeon Neurosurgery 04/26/23 Margarita Quevedo PA-C [address] [address] Specialist Neurosurgery 04/26/23 Antwon Camilo PA-C [address] [address] Specialist Neurosurgery 04/26/23 documented as of this encounter
--- OUTSIDE RECORDS SUMMARY | 2025-04-11 08:37 | XMS_ITS | Encounter Summary ---
Author Organization [facility] [employer] [facility] Prior to 02/16/2024 Address [address] [place] [address] Care Team Providers Care Knotting Machine Operator Name Role Phone Alba Ojeda MD Primary Care Provider Fadia Gan MD Primary Care Prov ider Marina Mcguire MD Unavailable [phone] Margarita Quevedo PA-C Unavailable Antwon Camilo PA-C Unavailable Reason for Visit * Reason Onset Date Comments Transfer Records 02/09/2021 OBGYN Encounter Details Date Type Department Care Team Description 02/09/2021 Telephone OBGYN - [address] [id number] Brandee Rodriguez CNM [address] [place], [place] [id number] Transfer Records (OBGYN) Social History Tobacco Use Types Packs/Day Years [...] encounter Miscellaneous Notes * Telephone Encounter - Kari More - 02/25/2021 3:38 PM EST AMRIT re-faxed as no records received. * Telephone Encounter - Janie More - 02/09/2021 12:20 PM EDT Patient would like to be seen in OBGYN. AMRIT completed and faxed to [facility]. Patient will be contacted on receipt of records. documented in this encounter Plan of Treatment Not on file documented as of this encounter Visit Diagnoses Not on filedocumented in this encounter Additional Health Concerns Infection Onset Date Last Indicated Resolved Time COVID-19 Comment:Patient reporting positive test 05/08/2023 05/09/2023 06/13/2023 11:08 AM EST documented as of this encounter Care Teams Knotting Machine Operator Relationship Specialty Start Date End Date Alba Ojeda MD PCP - General Internal Medicine 11/21/18 02/13/22 Fadia Arcos MD [address] [place] [address] PCP - General Internal Medicine 02/14/22 Marina Mcguire MD [address] [address] Surgeon Neurosurgery 04/26/23 Margarita Quevedo PA-C [address] [address] Specialist Neurosurgery 04/26/23 Antwon Camilo PA-C [address] [address] Specialist Neurosurgery 04/26/23 documented as of this encounter
--- OUTSIDE RECORDS SUMMARY | 2025-04-11 08:37 | XMS_ITS | Encounter Summary ---
Author Organization [facility] Prior to 02/16/2024 Address [address] [place] [address] Care Team Providers Care Sales Warehouse Driver Name Role Phone Name, Audi IVEY Primary Care Provider Unavailabl e Name, [employer] IVEY Primary Care Provider Unavailabl e Yris Arreaga MD Primary Care Provider Un available Alba Ojeda MD Primary Care Provider Fadia Gan MD Primary Care Prov ider Marina Mcguire MD Unavailable [phone] Margarita Quevedo PA-C Unavailable [phone] Antwon Camilo PA-C Unavailable [phone] Reason for Visit * Reason Onset Date Comments Provider Call Back 03/04/2013 Encounter Details Date Type Department Care Team Description 03/04/2013 Telephone ROOM DESIGNER - [address] [id number] Flaca Leigh CNM Provider Call Back Social History Tobacco Use [...] encounter Miscellaneous Notes * Telephone Encounter - Socorro georgettetino - 03/04/2013 1:21 PM EST Patient saw Tiffanie a few weeks ago, was given ondansetron for nausea/vomiting in early , was told to call back to speak with tiffanie to let her know how she feels, call passed to Tiffanie documented in this encounter Plan of Treatment Not on file documented as of this encounter Visit Diagnoses Not on filedocumented in this encounter Additional Health Concerns Infection Onset Date Last Indicated Resolved Time COVID-19 Comment:Patient reporting positive test 05/08/2023 05/09/2023 06/13/2023 11:08 AM EST documented as of this encounter Care Teams Sales Warehouse Driver Relationship Specialty Start Date End Date Name, MD Audi PCP - General 06/29/07 06/08/15 Name, MD Audi PCP - General Internal Medicine 06/09/15 09/06/15 Yris Arreaga MD PCP - General Internal Medicine 09/07/15 9 Alba Ojeda MD PCP - General Internal Medicine 11/21/18 02/13/22 Fadia Arcos MD [address] [place] [address] PCP - General Internal Medicine 02/14/22 Marina Mcguire MD [address] [address] Surgeon Neurosurgery 04/26/23 Margarita Quevedo PA-C [address] [address] Specialist Neurosurgery 04/26/23 Antwon Camilo PA-C [address] [address] Specialist Neurosurgery 04/26/23 documented as of this encounter
== END 2025-04-11 08:53 | disposition home or self-care (01) ==
LOC: HO.HSM 08:34
PROVIDERS: PCP Internal Medicine; Visit Provider Registered Nurse
DX: G43.009 Migraine without aura, not intractable, without status migrainosus (principal); I44.1 Atrioventricular block, second degree
CPT/HCPCS: 99214

== ENCOUNTER → 2025-04-11 08:34 | Outpatient (BNVA) | payer OTHER, SELFPAY | PROVIDERS: PCP Internal Medicine; Visit Provider Registered Nurse | DX: G43.009 Migraine without aura, not intractable, without status migrainosus (principal); I44.1 Atrioventricular block, second degree; Z79.899 Other long term (current) drug therapy | CPT/HCPCS: 99212 ==